=== PATIENT | female | born 1995 | race Caucasian/White ===

== ENCOUNTER 2019-10-25 21:14 | Emergency (ER) | payer SELFPAY ==
[2019-10-25] MEDS ORDERED: Albuterol 6.7 GM Inhaler INH ONE (21:42)
[2019-10-25] MEDS ORDERED: Codeine/Promethazine 10-6.25 MG/5 ML Syrup 5 ML UD Cup PO ONE (21:45)
--- NOTE | 2019-10-25 21:54 | EDM.PDOC ---
ED HPI GENERAL MEDICAL PROBLEM - General Chief Complaint: Respiratory Problem Stated Complaint: COUGH/FEVER/MUCOUS Time Seen by Provider: 10/25/19 21:16 Source of Information: Reports: Patient History Limitations: Reports: No Limitations - History of Present Illness INITIAL COMMENTS - FREE TEXT/NARRATIVE: Patient is a 24-year-old female who presents with complaints of cough, fever, shortness of breath, and chest discomfort for the last 2 weeks. Patient states that this illness started as a sore throat about 2 weeks ago and gradually progressed into a dry cough. She developed a fever approximately 1 week ago. Cough has not been productive with "thick green blobs ". She has been using [id number] DayQuil and NyQuil. She has no chronic lung conditions. Patient was in [place] about 3 weeks ago, but has not had any known sick contacts. She did not receive a flu shot this year. 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, Musculoskeletal History: Reports: None Neurological History: Reports: None Psychiatric History: Reports: None Endocrine/Metabolic History: Reports: None Hematologic History: Reports: None Immunologic History: Reports: None Oncologic (Cancer) History: Reports: None Dermatologic History: Reports: None - Infectious Disease History Infectious Disease History: Reports: None - Past Surgical History HEENT Surgical History: Reports: Other (See Below) Other HEENT Surgeries/Procedures: Ear Surgery in 2018 Female Surgical History: Reports: Section, Lithotripsy/ESWL Social & Family History - Family History Family Medical History: Noncontributory - Tobacco Use Smoking Status *Q: Current Every Day Smoker Years of Tobacco use: 10 Packs/Tins Daily: 0.2 - Caffeine Use Caffeine Use: Reports: Soda - Recreational Drug Use Recreational Drug Use: No ED ROS GENERAL - Review of Systems Review Of Systems: See Below Constitutional: Reports: Fever, Chills HEENT: Reports: No Symptoms. Denies: Ear Pain Respiratory: Reports: Shortness of Breath, Pleuritic Chest Pain, Cough, Sputum Cardiovascular: Reports: No Symptoms. Denies: Lightheadedness, Palpitations Endocrine: Reports: No Symptoms GI/Abdominal: Reports: No Symptoms. Denies: Abdominal Pain, Diarrhea, Nausea, Vomiting : Reports: No Symptoms Musculoskeletal: Reports: No Symptoms Skin: Reports: No Symptoms Neurological: Reports: No Symptoms Psychiatric: Reports: No Symptoms Hematologic/Lymphatic: Reports: No Symptoms Immunologic: Reports: No Symptoms ED EXAM, GENERAL - Physical Exam Exam: See Below Exam Limited By: No Limitations General Appearance: Alert, WD/WN, No Apparent Distress Respiratory/Chest: No Respiratory Distress, Lungs Clear, Normal Breath Sounds, No Accessory Muscle Use, Chest Non-Tender, Other (Harsh cough). No: Crackles, Rales, Rhonchi, Wheezing, Stridor, Accessory Muscle Use Cardiovascular: Normal Peripheral Pulses, Regular Rate, Rhythm, No Edema, No Gallop, No JVD, No Murmur, No Rub Neurological: Alert, Oriented, CN II-XII Intact, Normal Cognition, Normal Gait, Normal Reflexes, No Motor/Sensory Deficits Psychiatric: Normal Affect, Normal Mood Skin Exam: Warm, Dry, Intact, Normal Color, No Rash Course - Vital Signs Last Recorded V/S: Last Vital Signs Temp 100.2 F 10/25/19 21:21 Pulse 121 H 10/25/19 21:21 Resp 16 10/25/19 21:21 BP 154/89 H 10/25/19 21:21 Pulse Ox 100 10/25/19 22:13 - Orders/Labs/Meds Orders: Active Orders 24 hr Category Date Time Status RT Post Treatment Assessment [RC] Click to Edit Care 10/25/19 21:42 Active RT Pre-Treatment Assessment [RC] Click to Edit Care 10/25/19 21:42 Active CORONAVIRUS COVID-19 PCR PHL [MREF] Stat Lab 10/25/19 22:05 Received Isolation [COMM] Routine Oth 10/25/19 21:47 Ordered Meds: Medications Discontinued Medications Generic Name Dose Route Start Last Admin Trade Name Freq PRN Reason Stop Dose Admin Albuterol 0 gm 10/25/19 21:42 10/25/19 22:10 Proventil Hfa INH 10/25/19 21:43 2 puff ONETIME ONE Administration Promethazine HCl/Codeine 5 ml 10/25/19 21:45 10/25/19 22:02 Phenergan With Codeine PO 10/25/19 21:46 5 ml ONETIME ONE Administration - Re-Assessments/Exams Free Text/Narrative Re-Assessment/Exam: 10/25/19 22:49 Chest x-ray was negative for any infiltrates. Patient's cough is much improved after the albuterol and cough syrup. Oxygen saturations remain 100% on room and she is in no respiratory distress. We will discharge her home at this time with instructions to continue to self isolate. I will send a prescription for Phenergan with codeine to [facility]. Discharge instructions as documented. Departure - Departure Time of Disposition: 22:50 Disposition: Home, Self-Care 01 Condition: Fair Clinical Impression: Viral respiratory illness - Discharge Information *PRESCRIPTION DRUG MONITORING PROGRAM REVIEWED*: No *COPY OF PRESCRIPTION DRUG MONITORING REPORT IN PATIENT MIKE: No Prescriptions: Codeine/Promethazine [Phenergan with Codeine] 5 ml PO Q4HR PRN #100 ml PRN Reason: Cough Instructions: Viral Illness, Adult Referrals: PCP,None [Primary Care Provider] - Forms: ED Department Discharge Additional Instructions: You were seen in the emergency department today for fever, cough, and shortness of breath for the last 2 weeks. A chest x-ray was done. There was no evidence of pneumonia. Influenza screen was done and was found to be negative. Covid19 testing was also collected, however the results of this test would not be available for 24 to 36 hours. You will be notified when these are available. You have been sent home with an albuterol inhaler. Use this 2 puffs every 4 hours as needed for cough and shortness of breath. A prescription for Phenergan with codeine cough syrup is also been sent to [facility]. Use this as prescribed. This may be sedating so do not drive for at least 12 hours after taking the medication. Recommend that you continue to self quarantine until symptoms have been fully resolved for at least 3 days. If you should experience any worsening symptoms, please return to the emergency department. Sepsis Event Note - Evaluation Sepsis Screening Result: Possible Sepsis Risk - Focused Exam Date Exam was Performed: 10/26/19 Time Exam was Performed: 11:16 - My Orders Last 24 Hours: My Active Orders 10/25/19 21:42 RT Post Treatment Assessment [RC] Click to Edit RT Pre-Treatment Assessment [RC] Click to Edit 10/25/19 21:47 Isolation [COMM] Routine 10/25/19 22:05 CORONAVIRUS COVID-19 PCR PHL [MREF] Stat - Assessment/Plan Last 24 Hours: My Active Orders 10/25/19 21:42 RT Post Treatment Assessment [RC] Click to Edit RT Pre-Treatment Assessment [RC] Click to Edit 10/25/19 21:47 Isolation [COMM] Routine 10/25/19 22:05 CORONAVIRUS COVID-19 PCR PHL [MREF] Stat
--- NOTE | 2019-10-26 06:49 | CR ---
Chest: Portable view of the chest was obtained. Comparison: No prior chest imaging. Heart size and mediastinum are normal. Lungs show no acute parenchymal change. Bony structures are grossly intact. Impression: 1. Nothing acute is appreciated on portable chest x-ray. Diagnostic code #1 This report was dictated in MDT
== END 2019-10-25 23:10 | disposition home or self-care (01) ==
LOC: JD.ED 21:14
DX: J06.9 Acute upper respiratory infection, unspecified (principal); F17.210 Nicotine dependence, cigarettes, uncomplicated; Z88.5 Allergy status to narcotic agent
CPT/HCPCS: 71045; 87804; 94640; 99284; A9270; U0001; 99283

== ENCOUNTER 2019-11-07 19:36 | Emergency (ER) | payer SELFPAY ==
[2019-11-07] MEDS ORDERED: Ondansetron 4 MG/2 ML SDV IVPUSH ONE (20:18)
[2019-11-07] MEDS ORDERED: HYDROmorphone 1 MG/ML Syringe IVPUSH STA (20:18)
--- NOTE | 2019-11-07 20:26 | EDM.PDOC ---
<Sam Rangel Len - Last Filed: 11/08/19 07:09> ED HPI GENERAL MEDICAL PROBLEM - General Chief Complaint: Abdominal Pain Stated Complaint: SIDE/ABDOMINAL PAIN Time Seen by Provider: 11/07/19 19:57 Source of Information: Reports: Patient History Limitations: Reports: No Limitations - History of Present Illness INITIAL COMMENTS - FREE TEXT/NARRATIVE: Ms. Herring is a most pleasant 24-year-old woman with a past medical history significant for kidney stones and endometriosis, who now presents to the ED stating that she has been experiencing nausea and vomiting, along with a headache, feeling shaky, weak, and lightheaded for the past 4 days, since 11/03/2019. She then developed right upper quadrant abdominal pain, sharp in character, that radiated to her right flank, around 12:30 yesterday afternoon. Over time, the pain started radiating down as a shooting pain to her right lower quadrant. Her pain is worse if she is supine, otherwise, she has not identified any modifiers. No associated fever, chills, dysuria, urinary frequency, or gross hematuria. No recent sore throat, ear pain, nasal or sinus congestion, cough, dyspnea, chest pain, palpitations, constipation, recent weight gain or weight loss, recent bloody bowel movements or black bowel movements, recent joint aches, or rashes. The patient states that her pain is similar to prior kidney stones, except that her kidney stone pain was limited to her flank, and did not radiate to her abdomen. The patient's LMP was 10/11/2019. She states that there is no chance that she could be . She last ate around 14:00 this afternoon. Here in the ED, the patient is found to be hemodynamically stable, afebrile, saturating 100% on room air. The patient does not have a PCP. She did not receive an influenza vaccine this season, but agreed to receive one here today. 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) - Past Surgical History HEENT Surgical History: Reports: Other (See Below) (Left TM reconstruction Jul 2019) Female Surgical History: Reports: Section (x 1), Lithotripsy/ESWL ( x 2), Other (See Below) (Exploratory laparotomy for ovarian cyst, discovering endometriosis) Social & Family History - Family History Family Medical History: Noncontributory - Tobacco Use Smoking Status *Q: Current Every Day Smoker Years of Tobacco use: 10 Packs/Tins Daily: 0.3 Packs/Tins Daily Comment: Down from 1 ppd - Caffeine Use Caffeine Use: Reports: Soda - Alcohol Use Alcohol Use History: Yes Date/Time of Last Drink Comment: Quit 2015 - Recreational Drug Use Recreational Drug Use: Yes Drug Use in Last 12 Months: No Recreational Drug Type: Reports: Marijuana/Hashish (last smoked 17 yrs old) - Living Situation & Occupation Living situation: Reports: , with Family (Son), Other (Friend) Occupation: Unemployed ED ROS GENERAL - Review of Systems Review Of Systems: Comprehensive ROS is negative, except as noted in HPI. ED EXAM, GI/ABD - Physical Exam Exam: See Below Exam Limited By: No Limitations General Appearance: Alert, WD/WN, No Apparent Distress Eyes: Bilateral: Normal Appearance, EOMI Ears: Normal External Exam, Hearing Grossly Normal Nose: Normal Inspection Throat/Mouth: Normal Inspection, Normal Lips, Normal Voice, No Airway Compromise Head: Atraumatic, Normocephalic Neck: Normal Inspection, Full Range of Motion Respiratory/Chest: No Respiratory Distress, Lungs Clear, Normal Breath Sounds, No Accessory Muscle Use Cardiovascular: Normal Peripheral Pulses, Regular Rate, Rhythm, No Edema, No Gallop, No JVD, No Murmur, No Rub GI/Abdominal Exam: Normal Bowel Sounds, Soft, No Organomegaly, No Distention, No Abnormal Bruit, No Mass, Tender (Exquisite tenderness in the right lower quadrant, only. Nontender elsewhere. Rovsing sign present, particularly with palpation of the central abdomen. Obturator sign present. Psoas sign present. Heel drop sign present.) (Female) Exam: Deferred Rectal (Female) Exam: Deferred Back Exam: Normal Inspection, Full Range of Motion. No: CVA Tenderness (L), CVA Tenderness (R) Extremities: Normal Inspection, Normal Range of Motion, No Pedal Edema, Normal Capillary Refill Neurological: Alert, Oriented, Normal Cognition, No Motor/Sensory Deficits Psychiatric: Normal Affect Skin Exam: Warm, Dry, Intact, Normal Color, No Rash Course - Vital Signs Last Recorded V/S: Last Vital Signs Temp 98.2 F 11/07/19 19:52 Pulse 91 11/07/19 19:52 Resp 18 11/07/19 19:52 BP 114/77 11/07/19 19:52 Pulse Ox 100 11/07/19 19:52 Orthostatic Blood Pressure [ 113/82 Standing] Orthostatic Blood Pressure [ 110/78 Sitting] Orthostatic Blood Pressure [ 111/61 Supine] - Orders/Labs/Meds Orders: Active Orders 24 hr Category Date Time Status Influenza Vaccine Charge [RC] .DISCHARGE Care 11/07/19 20:19 Active Orthostatic Vital Signs [RC] STAT Care 11/07/19 20:21 Active Labs: Laboratory Tests 11/07/19 11/07/19 11/07/19 Range/Units 20:32 20:39 20:39 WBC 8.35 (3.98-10.04) K/mm3 RBC 4.53 (3.98-5.22) M/mm3 Hgb 13.7 (11.2-15.7) gm/dl Hct 42.2 (34.1-44.9) % MCV 93.2 (79.4-94.8) fl MCH 30.2 (25.6-32.2) pg MCHC 32.5 (32.2-35.5) g/dl RDW Std Deviation 44.4 (36.4-46.3) fL Plt Count 265 (182-369) K/mm3 MPV 10.6 (9.4-12.3) fl Neutrophils % (Manual) 64 H (40-60) % Band Neutrophils % 0 (0-10) % Lymphocytes % (Manual) 26 (20-40) % Atypical Lymphs % 0 % Monocytes % (Manual) 8 (2-10) % Eosinophils % (Manual) 2 (0.7-5.8) % Basophils % (Manual) 0 L (0.1-1.2) Platelet Estimate Adequate RBC Morph Comment Normal Sodium (136-145) mEq/L Potassium (3.5-5.1) mEq/L Chloride (98-107) mEq/L Carbon Dioxide (21-32) mEq/L Anion Gap (5-15) BUN (7-18) mg/dL Creatinine (0.55-1.02) mg/dL Est Cr Clr Drug Dosing mL/min Estimated GFR (MDRD) (>60) mL/min BUN/Creatinine Ratio (14-18) Glucose (74-106) mg/dL Calcium (8.5-10.1) mg/dL Total Bilirubin (0.2-1.0) mg/dL AST (15-37) U/L ALT (14-59) U/L Alkaline Phosphatase (46-116) U/L Total Protein (6.4-8.2) g/dl Albumin (3.4-5.0) g/dl Globulin gm/dL Albumin/Globulin Ratio (1-2) Urine Color Yellow (Yellow) Urine Appearance Clear (Clear) Urine pH 6.0 (5.0-8.0) Ur Specific [place] > or = 1.030 (1.005-1.030) Urine Protein Negative (Negative) Urine Glucose (UA) Negative (Negative) Urine Ketones Negative (Negative) Urine Occult Blood Negative (Negative) Urine Nitrite Negative (Negative) Urine Bilirubin Negative (Negative) Urine Urobilinogen 0.2 (0.2-1.0) Ur Leukocyte Esterase Negative (Negative) Urine RBC 0-5 (0-5) /hpf Urine WBC 0-5 (0-5) /hpf Ur Squamous Epith Cells 0-5 (0-5) /hpf Urine Bacteria Few (FEW) /hpf Urine Mucus Moderate H (FEW) /hpf Urine HCG, Qual Negative (NEGATIVE) 11/07/19 Range/Units 21:03 WBC (3.98-10.04) K/mm3 RBC (3.98-5.22) M/mm3 Hgb (11.2-15.7) gm/dl Hct (34.1-44.9) % MCV (79.4-94.8) fl MCH (25.6-32.2) pg MCHC (32.2-35.5) g/dl RDW Std Deviation (36.4-46.3) fL Plt Count (182-369) K/mm3 MPV (9.4-12.3) fl Neutrophils % (Manual) (40-60) % Band Neutrophils % (0-10) % Lymphocytes % (Manual) (20-40) % Atypical Lymphs % % Monocytes % (Manual) (2-10) % Eosinophils % (Manual) (0.7-5.8) % Basophils % (Manual) (0.1-1.2) Platelet Estimate RBC Morph Comment Sodium 142 (136-145) mEq/L Potassium 3.2 L (3.5-5.1) mEq/L Chloride 105 (98-107) mEq/L Carbon Dioxide 26 (21-32) mEq/L Anion Gap 14.2 (5-15) BUN 13 (7-18) mg/dL Creatinine 0.7 (0.55-1.02) mg/dL Est Cr Clr Drug Dosing 97.17 mL/min Estimated GFR (MDRD) > 60 (>60) mL/min BUN/Creatinine Ratio 18.6 H (14-18) Glucose 91 (74-106) mg/dL Calcium 9.1 (8.5-10.1) mg/dL Total Bilirubin 0.4 (0.2-1.0) mg/dL AST 13 L (15-37) U/L ALT 35 (14-59) U/L Alkaline Phosphatase 75 (46-116) U/L Total Protein 7.7 (6.4-8.2) g/dl Albumin 4.3 (3.4-5.0) g/dl Globulin 3.4 gm/dL Albumin/Globulin Ratio 1.3 (1-2) Urine Color (Yellow) Urine Appearance (Clear) Urine pH (5.0-8.0) Ur Specific [place] (1.005-1.030) Urine Protein (Negative) Urine Glucose (UA) (Negative) Urine Ketones (Negative) Urine Occult Blood (Negative) Urine Nitrite (Negative) Urine Bilirubin (Negative) Urine Urobilinogen (0.2-1.0) Ur Leukocyte Esterase (Negative) Urine RBC (0-5) /hpf Urine WBC (0-5) /hpf Ur Squamous Epith Cells (0-5) /hpf Urine Bacteria (FEW) /hpf Urine Mucus (FEW) /hpf Urine HCG, Qual (NEGATIVE) Meds: Medications Discontinued Medications Generic Name Dose Route Start Last Admin Trade Name Freq PRN Reason Stop Dose Admin Hydromorphone HCl 0.5 mg 11/07/19 20:18 11/07/19 20:41 Dilaudid IVPUSH 11/07/19 20:19 0.5 mg ONETIME STA Administration Hydromorphone HCl 0.5 mg 11/07/19 22:46 11/07/19 23:01 Dilaudid IVPUSH 11/07/19 22:47 0.5 mg ONETIME ONE Administration Hydromorphone HCl 0.5 mg 11/08/19 01:08 11/08/19 01:57 Dilaudid IVPUSH 11/08/19 01:09 0.5 mg ONETIME ONE Administration Hydromorphone HCl 0.5 mg 11/08/19 04:33 11/08/19 04:44 Dilaudid IVPUSH 11/08/19 04:34 0.5 mg ONETIME ONE Administration Hydromorphone HCl 0.5 mg 11/08/19 08:28 11/08/19 08:40 Dilaudid IVPUSH 11/08/19 08:29 0.5 mg ONETIME ONE Administration Sodium Chloride 1,000 mls @ 150 mls/hr 11/07/19 20:30 11/07/19 20:42 Normal Saline IV 150 mls/hr ASDIRECTED [place] Administration Sodium Chloride 1,000 mls @ 999 mls/hr 11/08/19 08:30 11/08/19 08:35 Normal Saline IV 999 mls/hr ONETIME [place] Administration Influenza Virus Vaccine 1 each 11/07/19 20:19 Pharmacy To Dose - Influenza Vaccine IM 11/07/19 20:20 ONETIME ONE Influenza Virus Vaccine 60 mcg 11/07/19 20:30 11/07/19 20:56 Fluzone Quad Syringe IM 11/07/19 20:31 60 mcg .ONCE ONE Administration Iopamidol 100 ml 11/07/19 21:50 11/07/19 22:05 Isovue-300 (61%) IVPUSH 11/07/19 21:51 100 ml ONETIME ONE Administration Levofloxacin 750 mg 11/08/19 01:02 11/08/19 01:57 Levaquin PO 11/08/19 01:03 750 mg ONETIME STA Administration Lorazepam 0.5 mg 11/08/19 08:28 11/08/19 08:36 Ativan IVPUSH 11/08/19 08:29 0.5 mg ONETIME ONE Administration Metronidazole 500 mg 11/08/19 01:03 11/08/19 01:57 Flagyl PO 11/08/19 01:04 500 mg ONETIME STA Administration Ondansetron HCl 4 mg 11/07/19 20:18 11/07/19 20:42 Zofran IVPUSH 11/07/19 20:19 4 mg ONETIME ONE Administration Ondansetron HCl 4 mg 11/08/19 02:02 11/08/19 02:09 Zofran IVPUSH 11/08/19 02:03 4 mg ONETIME ONE Administration Potassium Chloride 40 meq 11/08/19 01:04 11/08/19 01:57 Klor-Con M20 PO 11/08/19 01:05 40 meq ONETIME ONE Administration - Re-Assessments/Exams Free Text/Narrative Re-Assessment/Exam: 11/07/19 20:21 Initially, I was suspecting that the patient was suffering from another kidney stone, however, her physical exam strongly suggests appendicitis. I have therefore ordered a work-up that includes blood work, a urinalysis, a urine test, and a CT scan of her abdomen and pelvis with oral and IV contrast. I have also ordered orthostatics, since she stated that she has been feeling lightheaded for the past 4 days. In the meantime, the patient will receive IV Dilaudid, IV Zofran, and IV fluid. 11/07/19 21:38 The patient is not orthostatic. 11/07/19 22:36 The patient's CBC is unremarkable. Her CMP is remarkable for a potassium depressed at 3.2, with the remainder of her CMP being unremarkable. Her urinalysis is unremarkable. Her urine test is negative. Before ordering oral potassium replacement, I want to be sure that the patient does not have an operable condition. 11/07/19 22:39 CT of the abdomen and pelvis with oral and IV contrast as read by Angle as "No acute findings." Based on the above, I will order a transvaginal ultrasound to evaluate for an ovarian cyst. If no cyst is found, I will need to call the Surgeon in to evaluate the patient personally. 11/07/19 22:47 The above plan was discussed with the patient. She is agreeable. I have ordered some additional Dilaudid. 11/08/19 00:55 Transvaginal ultrasound of the pelvis is read by [facility] as: 1. Possible intramural uterine fibroid, that measures 2.9 x 1.9 x 2.1 cm. 2. No evidence of left ovarian torsion. Right ovary not identified. Based on the above, I will discuss the case with the Surgeon chemistry quality control analyst. 11/08/19 01:[address] Alvarado at 00:57. He does not feel that the patient's presentation is consistent with appendicitis. He recommended that we give the patient oral Levaquin and oral Flagyl, and keep her here in the ED until the morning, at which time he can evaluate her personally. Since the patient is not going to the operating room, I have also ordered oral potassium chloride. We are unable to place the patient into observation, as no beds are available. 11/08/19 01:08 The above plan was discussed with the patient. She is agreeable. 11/08/19 07:[address] Jamie Ruiz. I will turn the patient over to him at this time to disposition based on Dr. Alvarado's evaluation. Departure - Departure Disposition: Home, Self-Care 01 Clinical Impression: Vomiting, Diarrhea, Abdominal pain - Discharge Information Prescriptions: Ondansetron [Zofran ODT] 4 mg PO Q8HR PRN #7 tab.dis PRN Reason: Nausea/Vomiting Instructions: Diarrhea, Adult, Abdominal Pain, Adult, Vomiting, Adult, [place] Diet Referrals: PCP,None [Primary Care Provider] - Forms: ED Department Discharge Additional Instructions: clear liquids only until this evening. Than very careful bland diet as tolerated. Avoid milk and dairy products for at least 3 days. Zofran if needed for any further nausea or vomiting. Prescription has been sent electronically to [facility]. Probiotic twice daily for 1 week. Follow up clinic if not better by tomorrow. Return to ED if symptoms worsening in any way as discussed. Sepsis Event Note - Evaluation Sepsis Screening Result: No Definite Risk - Focused Exam Date Exam was Performed: 11/08/19 Time Exam was Performed: 07:09 <Robi Ruiz - Last Filed: 11/08/19 17:30> Course - Re-Assessments/Exams Free Text/Narrative Re-Assessment/Exam: 11/08/19 08:30 Have assumed care from Dr Rangel at change of shift. I agree with his hx and exam as documented. Dr Alvarado General Surgeon has come over and evaluated patient. He agrees that she does not have a surgical abdomen. She has had vomiting and diarrhea for 4 days. Her labs are nl, Her CT did not show any acute findings. She is very anxious, upset that she is not getting better. She now has Reich after being up all night here in the ED and worried about continued abd pain and cramping. Have ordered dilaudid 0.5 mg IV, ativan 0.5 mg IV, another liter of IV fluid as her first liter was about 10 or more hrs ago. My plan is to let her than go home on clear liquids with prescription for zofran PRN, probiotic, strong return precautions. 11/08/19 17:29. resting much more comfortably after the above further dose of dilaudid, ativan and 1 further liter NS. Discharge instr. as documented. Departure - Departure Time of Disposition: 09:45 Condition: Fair Sepsis Event Note - Focused Exam Date Exam was Performed: 11/08/19 Time Exam was Performed: 17:29
[2019-11-07] MEDS ORDERED: FLU Vacc QS2019-20(6MOS+)/PF 60 MCG/0.5 ML SYRINGE IM ONE (20:30)
[2019-11-07] MEDS ORDERED: Sodium Chloride 0.9% 1,000 ML IV SCH (20:30)
[2019-11-07] MEDS ORDERED: Iopamidol 612 MG/ML 100 ML Bottle IVPUSH ONE (21:50)
[2019-11-07] MEDS ORDERED: HYDROmorphone 0.5 MG/0.5 ML Syringe IVPUSH ONE (22:46)
[2019-11-08] MEDS ORDERED: Levofloxacin 750 MG Tab PO STA (01:02)
[2019-11-08] MEDS ORDERED: metroNIDAZOLE 500 MG Tab PO STA (01:03)
[2019-11-08] MEDS ORDERED: Potassium Chloride 20 MEQ Tab.ER PO ONE (01:04)
[2019-11-08] MEDS ORDERED: HYDROmorphone 0.5 MG/0.5 ML Syringe IVPUSH ONE ×3 (01:08→08:28)
[2019-11-08] MEDS ORDERED: Ondansetron 4 MG/2 ML SDV IVPUSH ONE (02:02)
[2019-11-08] MEDS ORDERED: LORazepam 2 MG/ML SDV IVPUSH ONE (08:28)
[2019-11-08] MEDS ORDERED: Sodium Chloride 0.9% 1,000 ML IV SCH (08:30)
--- NOTE | 2019-11-08 08:31 | CT ---
CT abdomen and pelvis Technique: Multiple axial sections were obtained from above the dome of the diaphragm inferiorly through the pubic symphysis. Intravenous and oral contrast was utilized. Delayed images were also obtained through the bladder. Comparison: No prior abdominal imaging is available. Findings: Visualized lung bases show nothing acute. Minimal pleural-based nodule is seen within the left base measuring 2 mm which is felt to be incidental given the patient's age. Liver contains no focal abnormality. Spleen shows no focal abnormality. Adrenal glands show no nodule. Pancreas is within normal limits. Gallbladder contains no calcified gallstones. Kidneys show symmetric contrast enhancement without hydronephrosis or mass. Aorta shows no aneurysm. No retroperitoneal adenopathy or mesenteric abnormalities are seen. No pelvic mass or adenopathy is noted. Appendix is felt to be visualized and is normal in size. No free fluid or inflammatory change is appreciated. Bone window settings were reviewed which appear within normal limits for the patient's age. Delayed images shows contrast within the bladder. Impression: 1. Nothing acute is seen on CT study of the abdomen and pelvis. 2. Appendix appears normal in size. Diagnostic code #1 This report was dictated in MDT I agree with preliminary report from [facility], finalized on 11/07/19, 11:18 PM Central Daylight Time
--- NOTE | 2019-11-08 08:31 | US ---
Pelvic ultrasound: Multiple real-time images were obtained trans-vaginally and transabdominally. Comparison: Prior CT abdomen and pelvis exam performed earlier on the same day (10 PM). Anterior uterine fibroid is suggested measuring 2.1 x 2.9 x 1.9 cm. Endometrial thickness is normal at 6.1 mm. No free fluid is seen. Right ovary not visualized, right adnexa appears within normal limits. Left ovary appears within normal limits. Measurements: Uterus: Length 6.7 cm, AP height 3.4 cm, transverse width 4.6 cm Left ovary: 2.7 x 1.5 x 2.3 cm Impression: 1. Anterior uterine fibroid is suggested with measurements as noted above. 2. Right ovary not visualized, right adnexa appears within normal limits. 3. Other portions of the pelvic ultrasound exam are unremarkable. Diagnostic code #2 This report was dictated in MDT I agree with preliminary report from [facility], finalized on 11/08/19, 1:53 AM Central Daylight Time
--- NOTE | 2019-11-08 10:29 | PCM.CONS ---
H&P History of Present Illness - General Date of Service: 11/08/19 Admit Problem/Dx: abdominal pain Source of Information: Patient History Limitations: Reports: No Limitations - History of Present Illness Duration of Symptoms: Reports: Day(s): Location: Reports: Abdomen Quality: Reports: Ache, Pressure Severity: Severe Worsens with: Reports: Eating Associated Symptoms: Reports: Headaches, Loss of Appetite, Malaise, Nausea/ Vomiting, Other (diarrhea) Other HPI/Comments: Ms. Herring is a 24 yo woman with history of right ovarian cystectomy and endometriosis who presents with abdominal pain. Her story begins about 5 days ago, at which time she started to feel generally ill with nausea, malaise and watery diarrhea. She has been vomiting as well. She denies having pain at the onset of these symptoms, but two days ago she developed severe epigastric pain that has since radiated elsewhere. At presentation, she was reported to have McBurney point tenderness. In the emergency room, her lab work is normal and she has a CT scan which shows no abnormality. An endovaginal ultrasound failed to identify the right ovary. The patient's last menstrual period was almost exactly one month ago, and she reports a history of severe abdominal pain associated with her menstrual cycle. 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: Reports: 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 (laparotomy-proven) Musculoskeletal History: Reports: None Neurological History: Reports: None Psychiatric History: Reports: None Endocrine/Metabolic History: Reports: None Hematologic History: Reports: None Immunologic History: Reports: None Oncologic (Cancer) History: Reports: None Dermatologic History: Reports: None - Infectious Disease History Infectious Disease History: Reports: None - Past Surgical History HEENT Surgical History: Reports: Other (See Below) (Left TM reconstruction Jul 2019) Female Surgical History: Reports: Section (x 1), Lithotripsy/ESWL ( x 2), Other (See Below) (Exploratory laparotomy for ovarian cyst, discovering endometriosis) Social & Family History - Family History Family Medical History: Noncontributory - Tobacco Use Smoking Status *Q: Current Every Day Smoker Years of Tobacco use: 10 Packs/Tins Daily: 0.3 - Caffeine Use Caffeine Use: Reports: Soda - Recreational Drug Use Recreational Drug Use: Yes Drug Use in Last 12 Months: No Recreational Drug Type: Reports: Marijuana/Hashish (last smoked 17 yrs old) - Living Situation & Occupation Living situation: Reports: , with Family (Son), Other (Friend) Occupation: Unemployed H&P Review of Systems - Review of Systems: Review Of Systems: See Below General: Reports: Malaise, Weakness, Fatigue, Decreased Appetite HEENT: Reports: Headaches Pulmonary: Reports: No Symptoms Cardiovascular: Reports: No Symptoms Gastrointestinal: Reports: Abdominal Pain, Anorexia, Diarrhea, Decreased Appetite, Nausea, Vomiting Genitourinary: Reports: Dysmenorrhea Skin: Reports: No Symptoms Psychiatric: Reports: Anxiety Neurological: Reports: No Symptoms Hematologic/Lymphatic: Reports: No Symptoms Immunologic: Reports: No Symptoms Exam - Exam Exam: See Below - Vital Signs Vital Signs: Last Vital Signs Temp 36.8 C 11/07/19 19:52 Pulse 91 11/07/19 19:52 Resp 18 11/07/19 19:52 BP 114/77 11/07/19 19:52 Pulse Ox 100 11/07/19 19:52 Orthostatic Blood Pressure [ 113/82 Standing] Orthostatic Blood Pressure [ 110/78 Sitting] Orthostatic Blood Pressure [ 111/61 Supine] Weight: 51.256 kg - Exam General: Alert, Mild Distress HEENT: Conjunctiva Clear Neck: Supple Lungs: Clear to Auscultation, Normal Respiratory Effort Cardiovascular: Regular Rate GI/Abdominal Exam: Soft, No Distention, No Mass, Other (focal right upper quadrant tenderness) (Female) Exam: Deferred Rectal (Female) Exam: Deferred Extremities: Normal Inspection, Normal Range of Motion Skin: Warm, Dry, Intact Neuro Extensive - Mental Status: Alert, Oriented x3 Psychiatric: Normal Affect, Anxious, Depressed - Patient Data Lab Results Last 24 hrs: Laboratory Results - last 24 hr 11/07/19 11/07/19 11/07/19 Range/Units 20:32 20:39 20:39 WBC 8.35 (3.98-10.04) K/mm3 RBC 4.53 (3.98-5.22) M/mm3 Hgb 13.7 (11.2-15.7) gm/dl Hct 42.2 (34.1-44.9) % MCV 93.2 (79.4-94.8) fl MCH 30.2 (25.6-32.2) pg MCHC 32.5 (32.2-35.5) g/dl RDW Std Deviation 44.4 (36.4-46.3) fL Plt Count 265 (182-369) K/mm3 MPV 10.6 (9.4-12.3) fl Neutrophils % (Manual) 64 H (40-60) % Band Neutrophils % 0 (0-10) % Lymphocytes % (Manual) 26 (20-40) % Atypical Lymphs % 0 % Monocytes % (Manual) 8 (2-10) % Eosinophils % (Manual) 2 (0.7-5.8) % Basophils % (Manual) 0 L (0.1-1.2) Platelet Estimate Adequate RBC Morph Comment Normal Sodium (136-145) mEq/L Potassium (3.5-5.1) mEq/L Chloride (98-107) mEq/L Carbon Dioxide (21-32) mEq/L Anion Gap (5-15) BUN (7-18) mg/dL Creatinine (0.55-1.02) mg/dL Est Cr Clr Drug Dosing mL/min Estimated GFR (MDRD) (>60) mL/min BUN/Creatinine Ratio (14-18) Glucose (74-106) mg/dL Calcium (8.5-10.1) mg/dL Total Bilirubin (0.2-1.0) mg/dL AST (15-37) U/L ALT (14-59) U/L Alkaline Phosphatase (46-116) U/L Total Protein (6.4-8.2) g/dl Albumin (3.4-5.0) g/dl Globulin gm/dL Albumin/Globulin Ratio (1-2) Urine Color Yellow (Yellow) Urine Appearance Clear (Clear) Urine pH 6.0 (5.0-8.0) Ur Specific [place] > or = 1.030 (1.005-1.030) Urine Protein Negative (Negative) Urine Glucose (UA) Negative (Negative) Urine Ketones Negative (Negative) Urine Occult Blood Negative (Negative) Urine Nitrite Negative (Negative) Urine Bilirubin Negative (Negative) Urine Urobilinogen 0.2 (0.2-1.0) Ur Leukocyte Esterase Negative (Negative) Urine RBC 0-5 (0-5) /hpf Urine WBC 0-5 (0-5) /hpf Ur Squamous Epith Cells 0-5 (0-5) /hpf Urine Bacteria Few (FEW) /hpf Urine Mucus Moderate H (FEW) /hpf Urine HCG, Qual Negative (NEGATIVE) 11/07/19 Range/Units 21:03 WBC (3.98-10.04) K/mm3 RBC (3.98-5.22) M/mm3 Hgb (11.2-15.7) gm/dl Hct (34.1-44.9) % MCV (79.4-94.8) fl MCH (25.6-32.2) pg MCHC (32.2-35.5) g/dl RDW Std Deviation (36.4-46.3) fL Plt Count (182-369) K/mm3 MPV (9.4-12.3) fl Neutrophils % (Manual) (40-60) % Band Neutrophils % (0-10) % Lymphocytes % (Manual) (20-40) % Atypical Lymphs % % Monocytes % (Manual) (2-10) % Eosinophils % (Manual) (0.7-5.8) % Basophils % (Manual) (0.1-1.2) Platelet Estimate RBC Morph Comment Sodium 142 (136-145) mEq/L Potassium 3.2 L (3.5-5.1) mEq/L Chloride 105 (98-107) mEq/L Carbon Dioxide 26 (21-32) mEq/L Anion Gap 14.2 (5-15) BUN 13 (7-18) mg/dL Creatinine 0.7 (0.55-1.02) mg/dL Est Cr Clr Drug Dosing 97.17 mL/min Estimated GFR (MDRD) > 60 (>60) mL/min BUN/Creatinine Ratio 18.6 H (14-18) Glucose 91 (74-106) mg/dL Calcium 9.1 (8.5-10.1) mg/dL Total Bilirubin 0.4 (0.2-1.0) mg/dL AST 13 L (15-37) U/L ALT 35 (14-59) U/L Alkaline Phosphatase 75 (46-116) U/L Total Protein 7.7 (6.4-8.2) g/dl Albumin 4.3 (3.4-5.0) g/dl Globulin 3.4 gm/dL Albumin/Globulin Ratio 1.3 (1-2) Urine Color (Yellow) Urine Appearance (Clear) Urine pH (5.0-8.0) Ur Specific [place] (1.005-1.030) Urine Protein (Negative) Urine Glucose (UA) (Negative) Urine Ketones (Negative) Urine Occult Blood (Negative) Urine Nitrite (Negative) Urine Bilirubin (Negative) Urine Urobilinogen (0.2-1.0) Ur Leukocyte Esterase (Negative) Urine RBC (0-5) /hpf Urine WBC (0-5) /hpf Ur Squamous Epith Cells (0-5) /hpf Urine Bacteria (FEW) /hpf Urine Mucus (FEW) /hpf Urine HCG, Qual (NEGATIVE) Result Diagrams: 11/07/19 20:32 11/07/19 21:03 Sepsis Event Note - Evaluation Sepsis Screening Result: No Definite Risk *Q Meaningful Use (ADM) - VTE Risk Assess *Q Each Risk Factor Represents 1 Point: None Total Score 1 Point Risk Factors: 0 Consult PN Assessment/Plan Procedures: Procedures AIRWAY INHALATION TREATMENT (10/25/19) COMPLETE CBC W/AUTO DIFF WBC (04/05/19) COMPREHEN METABOLIC PANEL (04/05/19) CT ABD & PELV W/CONTRAST (04/05/19) EMERGENCY DEPT VISIT (10/25/19) HYDRATE IV INFUSION ADD-ON (04/05/19) INFLUENZA ASSAY W/OPTIC (10/25/19) ROUTINE VENIPUNCTURE (04/05/19) THER/PROPH/DIAG INJ IV PUSH (04/05/19) TX/PRO/DX INJ NEW DRUG ADDON (04/05/19) URINALYSIS AUTO W/SCOPE (04/05/19) URINE CULTURE/COLONY COUNT (04/05/19) URINE TEST (04/05/19) X-RAY EXAM CHEST 1 VIEW (10/25/19) Problem List Initiated/Reviewed/Updated: Yes My Orders Last 24 Hours: . Plan: History is more suggestive of an acute infectious process/gastroenteritis than anything. Her abdominal pain may be unrelated to this, and the timing seems to fit with prior pain associated with menses. The patient does have a history of endometriosis noted on laparoscopy for ovarian cystectomy a few years ago. Her exam is not consistent with appendicitis but is rather suggestive of possible gallbladder pathology. At this time, an ultrasound seems low yield given normal labs and CT scan, but if pain persists the ultrasound may prove useful
== END 2019-11-08 10:00 | disposition home or self-care (01) ==
LOC: JD.ED 19:36
DX: R10.31 Right lower quadrant pain (principal); R10.11 Right upper quadrant pain; R11.2 Nausea with vomiting, unspecified; R19.7 Diarrhea, unspecified; Z23 Encounter for immunization; F17.210 Nicotine dependence, cigarettes, uncomplicated; Z88.5 Allergy status to narcotic agent
CPT/HCPCS: 36415; 74177; 76830; 80053; 81001; 81025; 85007; 85027; 90471; 90686; 96361; 96374; 96375; 96376; 99284; A9270; J1170; J2060; J2405; J7030; Q9967; G0008

== ENCOUNTER 2020-01-30 00:56 | Emergency (ER) | payer MEDICAID ==
--- NOTE | 2020-01-30 01:44 | EDM.PDOC ---
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 Patient has had this pain getting worse over the last 3 weeks. The patient had an ultrasound done about a week and a half ago with Dr. Fermin and this showed a left ovary with a 3.3 cm cyst on it. The patient is having significant problems with ovarian cysts in the past. She had a right oophorectomy due to no ovarian cyst that was the size of a cantaloupe. The patient has noticed increasing pain over the last 8 to 10 hours with this. The patient is unable to get any sort of sleep or rest and is having difficulty finding a comfortable position. 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 Psychiatric History: Reports: PTSD - Past Surgical History HEENT Surgical History: Reports: Tonsillectomy Female Surgical History: Reports: Lithotripsy/ESWL Social & Family History - Family History Family Medical History: Noncontributory - Caffeine Use Caffeine Use: Reports: Coffee, Soda ED ROS GENERAL - Review of Systems Review Of Systems: See Below Constitutional: Reports: No Symptoms HEENT: Reports: No Symptoms Respiratory: Reports: No Symptoms Cardiovascular: Reports: No Symptoms Endocrine: Reports: No Symptoms GI/Abdominal: Reports: Abdominal Pain (This is left lower quadrant pain), Nausea. Denies: Constipation, Diarrhea, Vomiting : Reports: No Symptoms ED EXAM, GI/ABD - Physical Exam Exam: See Below Exam Limited By: No Limitations General Appearance: Alert, Mild Distress (From the pain) Head: Atraumatic, Normocephalic Neck: Normal Inspection, Supple, Non-Tender, Full Range of Motion Respiratory/Chest: No Respiratory Distress, Lungs Clear, Normal Breath Sounds Cardiovascular: Regular Rate, Rhythm, No Edema, No Murmur GI/Abdominal Exam: Normal Bowel Sounds, Soft, Tender (Left pelvis and lower quadrant significant discomfort). No: Guarding, Rigid, Rebound Back Exam: Normal Inspection. No: CVA Tenderness (L), CVA Tenderness (R) Extremities: Normal Inspection, No Pedal Edema Neurological: Alert, Oriented, Normal Cognition Course - Vital Signs Last Recorded V/S: Last Vital Signs Temp 36.8 C 01/30/20 01:30 Pulse 88 01/30/20 01:30 Resp 16 01/30/20 01:30 BP 112/72 01/30/20 01:30 Pulse Ox 100 01/30/20 01:30 - Orders/Labs/Meds Orders: Active Orders 24 hr Category Date Time Status Transvaginal Non OB [US] Stat Exams 01/30/20 02:37 Taken Lactated Ringers [Ringers, Lactated] 1,000 ml Med 01/30/20 02:00 Active IV ASDIRECTED Medication Orders Lactated Ringer's (Ringers, Lactated) 1,000 mls @ 125 mls/hr IV ASDIRECTED [place] Last Admin: 01/30/20 02:22 Dose: 125 mls/hr Documented by: [place] Labs: Laboratory Tests 01/30/20 01/30/20 01/30/20 Range/Units 02:15 02:15 02:30 WBC 9.74 (3.98-10.04) K/mm3 RBC 4.35 (3.98-5.22) M/mm3 Hgb 13.3 (11.2-15.7) gm/dl Hct 39.9 (34.1-44.9) % MCV 91.7 (79.4-94.8) fl MCH 30.6 (25.6-32.2) pg MCHC 33.3 (32.2-35.5) g/dl RDW Std Deviation 41.7 (36.4-46.3) fL Plt Count 242 (182-369) K/mm3 MPV 10.4 (9.4-12.3) fl Neut % (Auto) 52.1 (34.0-71.1) % Lymph % (Auto) 36.7 (19.3-51.7) % [place] % (Auto) 7.6 (4.7-12.5) % Eos % (Auto) 3.1 (0.7-5.8) Baso % (Auto) 0.2 (0.1-1.2) % Neut # (Auto) 5.08 (1.56-6.13) K/mm3 Lymph # (Auto) 3.57 (1.18-3.74) K/mm3 [place] # (Auto) 0.74 H (0.24-0.36) K/mm3 Eos # (Auto) 0.30 (0.04-0.36) K/mm3 Baso # (Auto) 0.02 (0.01-0.08) K/mm3 Sodium (136-145) mEq/L Potassium (3.5-5.1) mEq/L Chloride (98-107) mEq/L Carbon Dioxide (21-32) mEq/L Anion Gap (5-15) BUN (7-18) mg/dL Creatinine (0.55-1.02) mg/dL Est Cr Clr Drug Dosing mL/min Estimated GFR (MDRD) (>60) mL/min BUN/Creatinine Ratio (14-18) Glucose (74-106) mg/dL Calcium (8.5-10.1) mg/dL Total Bilirubin (0.2-1.0) mg/dL AST (15-37) U/L ALT (14-59) U/L Alkaline Phosphatase (46-116) U/L Total Protein (6.4-8.2) g/dl Albumin (3.4-5.0) g/dl Globulin gm/dL Albumin/Globulin Ratio (1-2) Urine Color Yellow (Yellow) Urine Appearance Clear (Clear) Urine pH 7.0 (5.0-8.0) Ur Specific [place] 1.025 (1.005-1.030) Urine Protein Negative (Negative) Urine Glucose (UA) Negative (Negative) Urine Ketones Negative (Negative) Urine Occult Blood Negative (Negative) Urine Nitrite Negative (Negative) Urine Bilirubin Negative (Negative) Urine Urobilinogen 0.2 (0.2-1.0) Ur Leukocyte Esterase Negative (Negative) Urine HCG, Qual Negative (NEGATIVE) 01/30/20 Range/Units 02:30 WBC (3.98-10.04) K/mm3 RBC (3.98-5.22) M/mm3 Hgb (11.2-15.7) gm/dl Hct (34.1-44.9) % MCV (79.4-94.8) fl MCH (25.6-32.2) pg MCHC (32.2-35.5) g/dl RDW Std Deviation (36.4-46.3) fL Plt Count (182-369) K/mm3 MPV (9.4-12.3) fl Neut % (Auto) (34.0-71.1) % Lymph % (Auto) (19.3-51.7) % [place] % (Auto) (4.7-12.5) % Eos % (Auto) (0.7-5.8) Baso % (Auto) (0.1-1.2) % Neut # (Auto) (1.56-6.13) K/mm3 Lymph # (Auto) (1.18-3.74) K/mm3 [place] # (Auto) (0.24-0.36) K/mm3 Eos # (Auto) (0.04-0.36) K/mm3 Baso # (Auto) (0.01-0.08) K/mm3 Sodium 138 (136-145) mEq/L Potassium 3.4 L (3.5-5.1) mEq/L Chloride 102 (98-107) mEq/L Carbon Dioxide 26 (21-32) mEq/L Anion Gap 13.4 (5-15) BUN 9 (7-18) mg/dL Creatinine 0.8 (0.55-1.02) mg/dL Est Cr Clr Drug Dosing 85.02 mL/min Estimated GFR (MDRD) > 60 (>60) mL/min BUN/Creatinine Ratio 11.3 L (14-18) Glucose 85 (74-106) mg/dL Calcium 8.7 (8.5-10.1) mg/dL Total Bilirubin 0.4 (0.2-1.0) mg/dL AST 12 L (15-37) U/L ALT 18 (14-59) U/L Alkaline Phosphatase 69 (46-116) U/L Total Protein 7.7 (6.4-8.2) g/dl Albumin 4.4 (3.4-5.0) g/dl Globulin 3.3 gm/dL Albumin/Globulin Ratio 1.3 (1-2) Urine Color (Yellow) Urine Appearance (Clear) Urine pH (5.0-8.0) Ur Specific [place] (1.005-1.030) Urine Protein (Negative) Urine Glucose (UA) (Negative) Urine Ketones (Negative) Urine Occult Blood (Negative) Urine Nitrite (Negative) Urine Bilirubin (Negative) Urine Urobilinogen (0.2-1.0) Ur Leukocyte Esterase (Negative) Urine HCG, Qual (NEGATIVE) Meds: Medications Generic Name Dose Route Start Last Admin Trade Name Freq PRN Reason Stop Dose Admin Lactated Ringer's 1,000 mls @ 125 mls/hr 01/30/20 02:00 01/30/20 02:22 Ringers, Lactated IV 125 mls/hr ASDIRECTED [place] Administration Discontinued Medications Generic Name Dose Route Start Last Admin Trade Name Freq PRN Reason Stop Dose Admin Fentanyl 50 mcg 01/30/20 03:19 01/30/20 03:27 Sublimaze IVPUSH 01/30/20 03:20 50 mcg ONETIME ONE Administration Hydromorphone HCl 0.5 mg 01/30/20 02:00 01/30/20 02:22 Dilaudid IVPUSH 01/30/20 02:01 0.5 mg ONETIME ONE Administration Ondansetron HCl 4 mg 01/30/20 02:00 01/30/20 02:22 Zofran IVPUSH 01/30/20 02:01 4 mg ONETIME ONE Administration - Re-Assessments/Exams Free Text/Narrative Re-Assessment/Exam: 01/30/20 03:56 Evaluation is unremarkable see as printed above hCG negative. Pelvic ultrasound was obtained which shows a hemorrhagic left ovarian cyst that measures 4.3 x 3.4 x 3.5 cm is most compatible with a hemorrhagic cyst, small amount of cul-de-sac fluid noted. Case was discussed with Dr. Adams on-call for gynecology. We will have the patient follow-up with Dr. Fermin later today. The patient received 1/2 mg of Dilaudid here in the emergency department and after the transvaginal ultrasound was done she had some discomfort and was given 50 mcg of fentanyl the patient is comfortable at this time we will discharge with a prescription for [place] 12/01/2024 #20 from the machine out in the waiting room. The patient verbalizes understanding to call Dr. Fermin's office today as soon as it opens. Departure - Departure Time of Disposition: 04:02 Disposition: Home, Self-Care 01 Clinical Impression: Complex cyst of left ovary - Discharge Information Referrals: Ophelia Mcwilliams MD [Primary Care Provider] - Forms: ED Department Discharge Additional Instructions: Return to the emergency room with any questions problems or worsening symptoms. Follow-up with Dr. Fermin later today call her office as soon as it opens. You were given a prescription for [place], this is a pain pill. Take 1 or 2 every 6 hours as needed for pain. Allow 12 hours after using this medication before driving or returning to work. If you have to use this medication on a regular basis take Colace 100 mg, this is an [id number] stool softener twice daily. Drink plenty of fluids. Sepsis Event Note (ED) - Evaluation Sepsis Screening Result: No Definite Risk - Focused Exam Vital Signs: Vital Signs Temp Pulse Resp BP Pulse Ox 01/30/20 01:30 36.8 C 88 16 112/72 100 - My Orders Last 24 Hours: My Active Orders 01/30/20 02:00 Lactated Ringers [Ringers, Lactated] 1,000 ml IV ASDIRECTED 01/30/20 02:37 Transvaginal Non OB [US] Stat - Assessment/Plan Last 24 Hours: My Active Orders 01/30/20 02:00 Lactated Ringers [Ringers, Lactated] 1,000 ml IV ASDIRECTED 01/30/20 02:37 Transvaginal Non OB [US] Stat
[2020-01-30] MEDS ORDERED: HYDROmorphone 0.5 MG/0.5 ML Syringe IVPUSH ONE (02:00)
[2020-01-30] MEDS ORDERED: Ondansetron 4 MG/2 ML SDV IVPUSH ONE (02:00)
[2020-01-30] MEDS ORDERED: Lactated Ringers 1,000 ML IV SCH (02:00)
[2020-01-30] MEDS ORDERED: fentaNYL 100 MCG/2 ML SDV IVPUSH ONE (03:19)
--- NOTE | 2020-01-30 09:02 | US ---
Pelvic ultrasound: Multiple real-time images were obtained transvaginally. Comparison: No prior study. Uterus is anteverted. No myometrial abnormality is seen. Endometrial thickness is 1.0 cm. Minimal free fluid is seen within the cul-de-sac believed to be physiologic. Right ovary not visualized with certainty. Complicated cyst is noted within the left ovary measuring 4.3 x 3.4 x 3.5 cm most likely representing hemorrhagic cyst. Measurements: Uterus: Length 7.8 cm, AP height 3.4 cm, transverse width 3.5 cm Left ovary: 5.1 x 4.0 x 4.7 cm Impression: 1. Hemorrhagic cyst within the left ovary measuring up to 4.3 cm. 2. Nonvisualized right ovary. 3. Other findings believed to be incidental and physiologic. Diagnostic code #3 This report was dictated in MDT I agree with preliminary report from adalberto, finalized on 01/30/20, 4:28 AM Central Daylight Time
== END 2020-01-30 04:25 | disposition home or self-care (01) ==
LOC: JD.ED 00:56 → SUPCPDRO 00:56 → MERGE 00:56 → JD.ED 04:25
DX: N83.202 Unspecified ovarian cyst, left side (principal); Z88.5 Allergy status to narcotic agent; Z79.899 Other long term (current) drug therapy
CPT/HCPCS: 36415; 76830; 80053; 81003; 81025; 85025; 96374; 96375; 99284; J1170; J2405; J3010; J7120

== ENCOUNTER 2020-02-14 20:06 | Emergency (ER) | payer MEDICAID ==
[2020-02-14] MEDS ORDERED: Sodium Chloride 0.9% 1,000 ML IV STA (20:38)
[2020-02-14] MEDS ORDERED: Sodium Chloride 0.9% 10 ML Syringe FLUSH PRN (20:38)
[2020-02-14] MEDS ORDERED: Ondansetron 4 MG/2 ML SDV IVPUSH ONE (20:38)
[2020-02-14] MEDS ORDERED: HYDROmorphone 1 MG/ML Syringe IVPUSH ONE (20:39)
--- NOTE | 2020-02-14 21:24 | EDM.PDOC ---
ED HPI GENERAL MEDICAL PROBLEM - General Chief Complaint: Abdominal Pain Stated Complaint: LEFT SIDE CYST PAIN Time Seen by Provider: 02/14/20 20:15 Source of Information: Reports: Patient History Limitations: Reports: No Limitations - History of Present Illness INITIAL COMMENTS - FREE TEXT/NARRATIVE: The patient presents with pelvic and abdominal pain and vaginal bleeding. She has a know hemorrhagic cyst. She was seen here about 15 days ago and she had an US that showed a 4.3cm cyst in the let ovary. She has been having vaginal bleeding for the past 14 days. She has a history of an ovarian cyst and it grew to the size of a cantaloupe and she needed surgery. She sees Dr Mcwilliams and she cannot get in to see her until February 26 and another US will be done then. She is having more pain and bleeding so she came in now. She has no fever but she does have chills. She has nausea and vomiting at times. She still has been having intercourse and may be . She has no dysuria or diarrhea. Onset: Gradual Duration: Week(s): Location: Reports: Abdomen, Pelvis Quality: Reports: Sharp Severity: Severe Improves with: Reports: None Worsens with: Reports: None Associated Symptoms: Reports: Fever/Chills, Nausea/Vomiting. 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 Denies: Fever HEENT: Reports: No Symptoms Respiratory: Reports: No Symptoms Cardiovascular: Reports: No Symptoms Endocrine: Reports: No Symptoms GI/Abdominal: Reports: Abdominal Pain, Nausea, Vomiting. Denies: Diarrhea : Reports: Other (Vaginal bleeding) Musculoskeletal: Reports: No Symptoms ED EXAM, GI/ABD - Physical Exam Exam: See Below Exam Limited By: No Limitations General Appearance: Alert, No Apparent Distress Ears: Normal External Exam Nose: Normal Inspection Head: Atraumatic, Normocephalic Neck: Normal Inspection Respiratory/Chest: No Respiratory Distress, Lungs Clear, Normal Breath Sounds Cardiovascular: Regular Rate, Rhythm, No Edema, No Murmur GI/Abdominal Exam: Soft, No Organomegaly, No Mass, Tender (Moderate tenderness to the left lower abdomen) Course - Vital Signs Last Recorded V/S: Last Vital Signs Temp 98.1 F 02/14/20 20:24 Pulse 76 02/14/20 20:24 Resp 20 02/14/20 20:24 BP 120/81 02/14/20 20:24 Pulse Ox 100 02/14/20 20:24 - Orders/Labs/Meds Orders: Active Orders 24 hr Category Date Time Status Peripheral IV Care [RC] . DIRECTED Care 02/14/20 20:38 Active Sodium Chloride 0.9% [Saline Flush] Med 02/14/20 20:38 Active 10 ml FLUSH ASDIRECTED PRN ED Antiemetic Medication Reflex [OM.PC] Stat Oth 02/14/20 20:38 Ordered Peripheral IV Insertion Adult [OM.PC] Stat Oth 02/14/20 20:38 Ordered Medication Orders Sodium Chloride (Saline Flush) 10 ml FLUSH ASDIRECTED PRN PRN Reason: Keep Vein Open Last Admin: 02/14/20 20:59 Dose: 10 ml Documented by: MARY Labs: Laboratory Tests 02/14/20 02/14/20 02/14/20 Range/Units 20:51 20:51 20:51 WBC 7.41 (3.98-10.04) K/mm3 RBC 4.51 (3.98-5.22) M/mm3 Hgb 13.6 (11.2-15.7) gm/dl Hct 41.7 (34.1-44.9) % MCV 92.5 (79.4-94.8) fl MCH 30.2 (25.6-32.2) pg MCHC 32.6 (32.2-35.5) g/dl RDW Std Deviation 42.9 (36.4-46.3) fL Plt Count 272 (182-369) K/mm3 MPV 9.9 (9.4-12.3) fl Neut % (Auto) 55.3 (34.0-71.1) % Lymph % (Auto) 32.8 (19.3-51.7) % [place] % (Auto) 8.0 (4.7-12.5) % Eos % (Auto) 3.5 (0.7-5.8) Baso % (Auto) 0.3 (0.1-1.2) % Neut # (Auto) 4.10 (1.56-6.13) K/mm3 Lymph # (Auto) 2.43 (1.18-3.74) K/mm3 [place] # (Auto) 0.59 H (0.24-0.36) K/mm3 Eos # (Auto) 0.26 (0.04-0.36) K/mm3 Baso # (Auto) 0.02 (0.01-0.08) K/mm3 Sodium 145 (136-145) mEq/L Potassium 3.5 (3.5-5.1) mEq/L Chloride 107 (98-107) mEq/L Carbon Dioxide 28 (21-32) mEq/L Anion Gap 13.5 (5-15) BUN 12 (7-18) mg/dL Creatinine 0.8 (0.55-1.02) mg/dL Est Cr Clr Drug Dosing 85.02 mL/min Estimated GFR (MDRD) > 60 (>60) mL/min BUN/Creatinine Ratio 15.0 (14-18) Glucose 94 (74-106) mg/dL Calcium 9.1 (8.5-10.1) mg/dL Total Bilirubin 0.4 (0.2-1.0) mg/dL AST 9 L (15-37) U/L ALT 17 (14-59) U/L Alkaline Phosphatase 80 (46-116) U/L Total Protein 7.9 (6.4-8.2) g/dl Albumin 4.5 (3.4-5.0) g/dl Globulin 3.4 gm/dL Albumin/Globulin Ratio 1.3 (1-2) Lipase 83 (73-393) U/L HCG, Qual Negative (NEGATIVE) Urine Color (Yellow) Urine Appearance (Clear) Urine pH (5.0-8.0) Ur Specific [place] (1.005-1.030) Urine Protein (Negative) Urine Glucose (UA) (Negative) Urine Ketones (Negative) Urine Occult Blood (Negative) Urine Nitrite (Negative) Urine Bilirubin (Negative) Urine Urobilinogen (0.2-1.0) Ur Leukocyte Esterase (Negative) Urine RBC (0-5) /hpf Urine WBC (0-5) /hpf Ur Squamous Epith Cells (0-5) /hpf Urine Bacteria (FEW) /hpf Urine Mucus (FEW) /hpf /16/ Range/Units 21:05 WBC (3.98-10.04) K/mm3 RBC (3.98-5.22) M/mm3 Hgb (11.2-15.7) gm/dl Hct (34.1-44.9) % MCV (79.4-94.8) fl MCH (25.6-32.2) pg MCHC (32.2-35.5) g/dl RDW Std Deviation (36.4-46.3) fL Plt Count (182-369) K/mm3 MPV (9.4-12.3) fl Neut % (Auto) (34.0-71.1) % Lymph % (Auto) (19.3-51.7) % [place] % (Auto) (4.7-12.5) % Eos % (Auto) (0.7-5.8) Baso % (Auto) (0.1-1.2) % Neut # (Auto) (1.56-6.13) K/mm3 Lymph # (Auto) (1.18-3.74) K/mm3 [place] # (Auto) (0.24-0.36) K/mm3 Eos # (Auto) (0.04-0.36) K/mm3 Baso # (Auto) (0.01-0.08) K/mm3 Sodium (136-145) mEq/L Potassium (3.5-5.1) mEq/L Chloride (98-107) mEq/L Carbon Dioxide (21-32) mEq/L Anion Gap (5-15) BUN (7-18) mg/dL Creatinine (0.55-1.02) mg/dL Est Cr Clr Drug Dosing mL/min Estimated GFR (MDRD) (>60) mL/min BUN/Creatinine Ratio (14-18) Glucose (74-106) mg/dL Calcium (8.5-10.1) mg/dL Total Bilirubin (0.2-1.0) mg/dL AST (15-37) U/L ALT (14-59) U/L Alkaline Phosphatase (46-116) U/L Total Protein (6.4-8.2) g/dl Albumin (3.4-5.0) g/dl Globulin gm/dL Albumin/Globulin Ratio (1-2) Lipase (73-393) U/L HCG, Qual (NEGATIVE) Urine Color Yellow (Yellow) Urine Appearance Clear (Clear) Urine pH 5.5 (5.0-8.0) Ur Specific [place] > or = 1.030 (1.005-1.030) Urine Protein Negative (Negative) Urine Glucose (UA) Negative (Negative) Urine Ketones Trace H (Negative) Urine Occult Blood Trace-lysed H (Negative) Urine Nitrite Negative (Negative) Urine Bilirubin Negative (Negative) Urine Urobilinogen 0.2 (0.2-1.0) Ur Leukocyte Esterase Negative (Negative) Urine RBC 0-5 (0-5) /hpf Urine WBC 0-5 (0-5) /hpf Ur Squamous Epith Cells 5-10 H (0-5) /hpf Urine Bacteria Few (FEW) /hpf Urine Mucus Many H (FEW) /hpf Meds: Medications Generic Name Dose Route Start Last Admin Trade Name Freq PRN Reason Stop Dose Admin Sodium Chloride 10 ml 02/14/20 20:38 02/14/20 20:59 Saline Flush FLUSH 10 ml ASDIRECTED PRN Administration Keep Vein Open Discontinued Medications Generic Name Dose Route Start Last Admin Trade Name Freq PRN Reason Stop Dose Admin Hydromorphone HCl 1 mg 02/14/20 20:39 02/14/20 20:58 Dilaudid IVPUSH 07/16/20 20:40 1 mg ONETIME ONE Administration Sodium Chloride 1,000 mls @ 1,000 mls/hr 02/14/20 20:38 02/14/20 20:55 Normal Saline IV 02/14/20 21:37 1,000 mls/hr .BOLUS STA Administration Ondansetron HCl 4 mg 02/14/20 20:38 02/14/20 20:55 Zofran IVPUSH 02/14/20 20:39 4 mg ONETIME ONE Administration - Re-Assessments/Exams Free Text/Narrative Re-Assessment/Exam: 02/14/20 21:27 I ordered an IV NS 1L bolus, zofran 4mg IV, dilaudid 1mg IV, labs and an US. 02/14/20 21:56 Her CBC and CMP look good. Her UA shows no UTI. Her HCG is negative. I am waiting for the US now. 02/14/20 22:10 The US shows previous hemorrhagic cyst seen on earlier US of 01/30/20 has resolved on current study. Several subendometrial calcifications within the uterus believed to be incidental. No additional abnormality is seen on pelvic US exam. She feels better. I will discharge her home. Departure - Departure Time of Disposition: 22:15 Disposition: Home, Self-Care 01 Condition: Good Clinical Impression: Lower abdominal pain, History of endometriosis, Vaginal bleeding - Discharge Information *PRESCRIPTION DRUG MONITORING PROGRAM REVIEWED*: Not Applicable *COPY OF PRESCRIPTION DRUG MONITORING REPORT IN PATIENT MIKE: Not Applicable Referrals: Ophelia Mcwilliams MD [Primary Care Provider] - 1 Week Forms: ED Department Discharge Additional Instructions: Take motrin or aleve for pain. Drink plenty of fluids. Follow up with Dr Mciwlliams. Please return if you are worse. Sepsis Event Note (ED) - Evaluation Sepsis Screening Result: No Definite Risk - Focused Exam Vital Signs: Vital Signs Temp Pulse Resp BP Pulse Ox 02/14/20 20:24 98.1 F 76 20 120/81 100 - My Orders Last 24 Hours: My Active Orders 02/14/20 20:38 Peripheral IV Care [RC] . DIRECTED Sodium Chloride 0.9% [Saline Flush] 10 ml FLUSH ASDIRECTED PRN ED Antiemetic Medication Reflex [OM.PC] Stat Peripheral IV Insertion Adult [OM.PC] Stat - Assessment/Plan Last 24 Hours: My Active Orders 02/14/20 20:38 Peripheral IV Care [RC] . DIRECTED Sodium Chloride 0.9% [Saline Flush] 10 ml FLUSH ASDIRECTED PRN ED Antiemetic Medication Reflex [OM.PC] Stat Peripheral IV Insertion Adult [OM.PC] Stat
--- NOTE | 2020-02-14 21:57 | US ---
Pelvic ultrasound: Multiple real-time images were obtained transvaginally. Comparison: Previous pelvic ultrasound study of 01/30/20. Findings: Uterus is anteverted. No myometrial abnormality is seen. Several subendometrial calcifications are seen which are felt to be incidental. Endometrial thickness is 4.3 mm. Right ovary shows follicles. Left ovary shows resolution of the previous hemorrhagic cyst. Follicles are seen within the left ovary. No free fluid is seen. Impression: 1. Previous hemorrhagic cyst seen on earlier ultrasound of 01/30/20 has resolved on current study. 2. Several subendometrial calcifications within the uterus believed to be incidental. 3. No additional abnormality is seen on pelvic ultrasound exam. Diagnostic code #2 This report was dictated in MDT
== END 2020-02-14 22:19 | disposition home or self-care (01) ==
LOC: MERGE 20:06 → JD.ED 20:06
DX: N93.9 Abnormal uterine and vaginal bleeding, unspecified (principal); R10.32 Left lower quadrant pain; Z88.6 Allergy status to analgesic agent; Z79.899 Other long term (current) drug therapy
CPT/HCPCS: 36415; 76830; 80053; 81001; 83690; 84703; 85025; 96361; 96374; 96375; 99284; J1170; J2405; J7030

== ENCOUNTER 2020-03-16 15:06 | Emergency (ER) | payer MEDICAID ==
--- NOTE | 2020-03-16 15:39 | EDM.PDOC ---
ED HPI GENERAL MEDICAL PROBLEM - General Chief Complaint: Respiratory Problem Stated Complaint: COUGH/SORE THROAT/WEAK Time Seen by Provider: 03/16/20 15:39 Source of Information: Reports: Patient History Limitations: Reports: No Limitations - History of Present Illness INITIAL COMMENTS - FREE TEXT/NARRATIVE: 25-year-old female attends the ED due to experiencing a severe sore throat that started yesterday associated with the development of fever and generalized myalgia. Complete loss of appetite. She had a cough about a week ago which was minimally productive. She states that it did seem to go away for couple days but started back up again yesterday. Her abdominal muscles are sore from coughing so much. No diarrhea nausea or vomiting. Believes no chance for . No genitourinary complaints. Onset: Sudden (Sore throat started suddenly yesterday) Onset Date: 03/15/20 Duration: Hour(s):, Constant, Getting Worse Location: Reports: Neck (Sore throat), Chest Quality: Reports: Ache, Burning, Other Severity: Severe (Following feels leg swelling razor blades.) Improves with: Reports: None Worsens with: Reports: Eating Context: Reports: Other. Denies: Activity, Exercise, Lifting, Sick Contact, Trauma Associated Symptoms: Reports: Cough, Fever/Chills, Loss of Appetite, Malaise (Nonproductive), Weakness. 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: Acetaminophen (About an hour prior to coming to the ED.) Generalized Pain Score (Numeric/FACES): 8 - Related Data Allergies Allergy/AdvReac Type Severity Reaction Status Date / Time tramadol Allergy Severe Headache Verified 03/16/20 15:27 Home Meds: Home Meds lamoTRIgine [LaMICtal] 150 mg PO DAILY 01/30/20 [History] traZODone HCl [Trazodone HCl] 100 mg PO BEDTIME 03/16/20 [History] Past Medical History HEENT History: Reports: Other (See Below) Other HEENT History: left ear drum reconstruction Genitourinary History: Reports: Renal Calculus Other Genitourinary History: endometriosis 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: 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, Other (See Below) Other DIRECTOR OF INSTRUMENTAL MUSIC History: ovarian cyst right side-partiaal ovary removed Psychiatric History: Reports: PTSD - Past Surgical History Female Surgical History: Reports: Section, Lithotripsy/ESWL Social & Family History - Family History Family Medical History: Noncontributory - Tobacco Use Used Tobacco, but Quit: Yes Month/Year Tobacco Last Used: 2019 - Caffeine Use Caffeine Use: Reports: Soda - Recreational Drug Use Recreational Drug Use: No - Living Situation & Occupation Living situation: Reports: Single Occupation: Employed ED ROS GENERAL - Review of Systems Review Of Systems: See Below Constitutional: Reports: Fever, Chills, Malaise, Weakness, Fatigue, Decreased Appetite. Denies: Weight Loss HEENT: Reports: Throat Pain. Denies: Ear Pain Respiratory: Reports: Cough. Denies: Shortness of Breath, Wheezing, Pleuritic Chest Pain, Sputum, Hemoptysis Cardiovascular: Reports: Chest Pain (Chest discomfort from coughing.), Dyspnea on Exertion, Lightheadedness. Denies: Blood Pressure Problem, Claudication, Edema, Orthopnea Endocrine: Reports: Fatigue GI/Abdominal: Reports: No Symptoms, Abdominal Pain, Decreased Appetite. Denies: Constipation (His abdominal muscles are sore from coughing so much.), Diarrhea, Difficulty Swallowing, Distension, Hematemesis, Hematochezia, Melena : Reports: No Symptoms Musculoskeletal: Reports: Muscle Pain Skin: Reports: No Symptoms (Generalized myalgia) Neurological: Reports: Dizziness Psychiatric: Reports: No Symptoms Hematologic/Lymphatic: Reports: No Symptoms Immunologic: Reports: No Symptoms ED EXAM, GENERAL - Physical Exam Exam: See Below Exam Limited By: No Limitations General Appearance: Alert, WD/WN, Mild Distress, Other (Peers ill. She is febrile to palpation. Nurses recorded temperature is 36.4 but she feels much warmer than this. Heart rate was 110 and sinus. Respiratory rate was 18. Sats are 98% on room air BP 115/78.) Eye Exam: Bilateral Eye: Normal Inspection, PERRL Ears: Normal TMs Throat/Mouth: Other (Oropharynx is diffusely erythematous particularly across Waldeyer's ring in the posterior oropharynx. The tonsils themselves are normal with no exudate.) Head: Atraumatic, Normocephalic Neck: Normal Inspection, Supple, Full Range of Motion, Lymphadenopathy (L), Lymphadenopathy (R) (Moderate moderate and tender) Respiratory/Chest: No Respiratory Distress, Lungs Clear, Normal Breath Sounds, No Accessory Muscle Use. No: Crackles, Rales, Rhonchi, Wheezing Cardiovascular: Normal Peripheral Pulses, No Edema, No Gallop, No Murmur, No Rub, Tachycardia (No tachycardia at 110/min.) Peripheral Pulses: 3+: Carotid (L), Carotid (R) GI/Abdominal: Normal Bowel Sounds, Soft, Non-Tender, No Organomegaly, No Abnormal Bruit, No Mass, Pelvis Stable Extremities: Normal Inspection, Normal Range of Motion, Non-Tender, No Pedal Edema Neurological: Alert, Oriented, CN II-XII Intact, Normal Cognition Psychiatric: Normal Affect, Normal Mood Skin Exam: Warm, Dry, Intact, Normal Color Course - Vital Signs Last Recorded V/S: Last Vital Signs Temp 36.4 C 03/16/20 15:23 Pulse 89 03/16/20 15:23 Resp 98 H 03/16/20 15:23 BP 115/78 03/16/20 15:23 Pulse Ox 98 03/16/20 15:23 - Orders/Labs/Meds Labs: Laboratory Tests 03/16/20 03/16/20 03/16/20 Range/Units 16:25 16:25 16:25 WBC 8.63 (3.98-10.04) K/mm3 RBC 4.08 (3.98-5.22) M/mm3 Hgb 12.5 (11.2-15.7) gm/dl Hct 38.6 (34.1-44.9) % MCV 94.6 (79.4-94.8) fl MCH 30.6 (25.6-32.2) pg MCHC 32.4 (32.2-35.5) g/dl RDW Std Deviation 44.0 (36.4-46.3) fL Plt Count 222 (182-369) K/mm3 MPV 9.9 (9.4-12.3) fl Neut % (Auto) 69.6 (34.0-71.1) % Lymph % (Auto) 19.8 (19.3-51.7) % [place] % (Auto) 9.6 (4.7-12.5) % Eos % (Auto) 0.6 L (0.7-5.8) Baso % (Auto) 0.2 (0.1-1.2) % Neut # (Auto) 6.00 (1.56-6.13) K/mm3 Lymph # (Auto) 1.71 (1.18-3.74) K/mm3 [place] # (Auto) 0.83 H (0.24-0.36) K/mm3 Eos # (Auto) 0.05 (0.04-0.36) K/mm3 Baso # (Auto) 0.02 (0.01-0.08) K/mm3 Sodium 139 (136-145) mEq/L Potassium 3.7 (3.5-5.1) mEq/L Chloride 105 (98-107) mEq/L Carbon Dioxide 25 (21-32) mEq/L Anion Gap 12.7 (5-15) BUN 8 (7-18) mg/dL Creatinine 0.6 (0.55-1.02) mg/dL Est Cr Clr Drug Dosing 112.93 mL/min Estimated GFR (MDRD) > 60 (>60) mL/min BUN/Creatinine Ratio 13.3 L (14-18) Glucose 93 (74-106) mg/dL Calcium 8.6 (8.5-10.1) mg/dL Ferritin (8-252) ng/ml Total Bilirubin 0.3 (0.2-1.0) mg/dL AST 11 L (15-37) U/L ALT 15 (14-59) U/L Alkaline Phosphatase 71 (46-116) U/L Lactate Dehydrogenase (81-234) U/L C-Reactive Protein 3.9 H* (<1.0) mg/dL Total Protein 6.8 (6.4-8.2) g/dl Albumin 3.9 (3.4-5.0) g/dl Globulin 2.9 gm/dL Albumin/Globulin Ratio 1.3 (1-2) COVID-19 PCR Not detected (NOT DETECT) 03/16/20 03/16/20 Range/Units 16:25 16:25 WBC (3.98-10.04) K/mm3 RBC (3.98-5.22) M/mm3 Hgb (11.2-15.7) gm/dl Hct (34.1-44.9) % MCV (79.4-94.8) fl MCH (25.6-32.2) pg MCHC (32.2-35.5) g/dl RDW Std Deviation (36.4-46.3) fL Plt Count (182-369) K/mm3 MPV (9.4-12.3) fl Neut % (Auto) (34.0-71.1) % Lymph % (Auto) (19.3-51.7) % [place] % (Auto) (4.7-12.5) % Eos % (Auto) (0.7-5.8) Baso % (Auto) (0.1-1.2) % Neut # (Auto) (1.56-6.13) K/mm3 Lymph # (Auto) (1.18-3.74) K/mm3 [place] # (Auto) (0.24-0.36) K/mm3 Eos # (Auto) (0.04-0.36) K/mm3 Baso # (Auto) (0.01-0.08) K/mm3 Sodium (136-145) mEq/L Potassium (3.5-5.1) mEq/L Chloride (98-107) mEq/L Carbon Dioxide (21-32) mEq/L Anion Gap (5-15) BUN (7-18) mg/dL Creatinine (0.55-1.02) mg/dL Est Cr Clr Drug Dosing mL/min Estimated GFR (MDRD) (>60) mL/min BUN/Creatinine Ratio (14-18) Glucose (74-106) mg/dL Calcium (8.5-10.1) mg/dL Ferritin 38 (8-252) ng/ml Total Bilirubin (0.2-1.0) mg/dL AST (15-37) U/L ALT (14-59) U/L Alkaline Phosphatase (46-116) U/L Lactate Dehydrogenase 130 (81-234) U/L C-Reactive Protein (<1.0) mg/dL Total Protein (6.4-8.2) g/dl Albumin (3.4-5.0) g/dl Globulin gm/dL Albumin/Globulin Ratio (1-2) COVID-19 PCR (NOT DETECT) Meds: Medications Discontinued Medications Generic Name Dose Route Start Last Admin Trade Name Freq PRN Reason Stop Dose Admin Dextrose/Sodium Chloride 1,000 mls @ 999 mls/hr 03/16/20 16:15 03/16/20 16:21 Dextrose 5%-Normal Saline IV 999 mls/hr ASDIRECTED [place]ER[place]IA Administration Ketorolac Tromethamine 30 mg 03/16/20 16:15 03/16/20 16:22 Toradol IVPUSH 30 mg ONETIME GER[place]IA Administration - Radiology Interpretation Free Text/Narrative:: 25-year-old female presents to the ED with acute onset of severe sore throat starting yesterday which is worsened today. Feels like she is swallowing razor blades when she swallows. She still has her tonsils in. Generalized myalgia loss of appetite. She has had a paroxysmal nonproductive cough for about 10 days. It was worse for the first 7 days then seemed to ease up until starting up again yesterday. Generalized myalgia. No nausea vomiting or diarrhea. Mild headache. Exam reveals diffuse oropharyngitis suggestive of strep throat. Marked bilateral submandibular adenopathy. She has had previous infectious mononucleosis. Mild tachycardia on examination secondary to fever. Lungs were clear to all station percussion. Plan rapid strep and culture. COVID screening which will be a send out to public health. 1 view of the chest to be done due to 10-day history of coughing. Routine labs to be performed CBC CMP and a CRP. Given D5 normal saline IV at open Toradol 30 mg IV for pain relief. - Re-Assessments/Exams Free Text/Narrative Re-Assessment/Exam: 03/16/20 16:55 White count is 8.63. Auto differential is 70%. Hemoglobin is 12.5 with hematocrit of 38.6 platelet count is 222,000. Audible chest x-ray is completely normal. Cardiac silhouette is normal visualized lung nichols are clear no pneumothorax no pleural effusion. No evidence of pneumonia. 03/16/20 17:00 Sodium is 139 with a potassium of 3.7. Chloride 105 with a bicarb of 25. Anion gap is 12.7. BUN is 8 with a creatinine of 0.6. GFR is greater than 60. Glucose is 93 with a calcium of 8.6. Liver function is normal. C-reactive protein is elevated at 3.9. Rapid strep screen is pending. 03/16/20 17:30 strep screen came back negative. Patient is feeling better after a liter of IV fluids and Toradol 30 mg IV. She will be quarantined at home until we find out her COVID status. Note will be given in this regard. She will continue Motrin 600 mg every 6 hours to relieve pain and inflammation. Plenty of fluids such as Gatorade or Powerade to maintain hydration. Departure - Departure Time of Disposition: 17:31 Disposition: Home, Self-Care 01 Condition: Fair Clinical Impression: Viral upper respiratory tract infection with cough - Discharge Information *PRESCRIPTION DRUG MONITORING PROGRAM REVIEWED*: Not Applicable *COPY OF PRESCRIPTION DRUG MONITORING REPORT IN PATIENT MIKE: Not Applicable Instructions: Viral Respiratory Infection, [id number], Upper Respiratory Infection, Adult, [id number] Referrals: Amaris Cole PA-C [Primary Care Provider] - Forms: ED Department Discharge, ED Return to Work/School Form Additional Instructions: Evaluation in the emergency room today in regards to persistent illness for the last 10days with a paroxysmal cough for the first week and then a small short break until return of cough. Development of acute severe sore throat yesterday making it difficult to swallow with associated fever and chills. Generalized body aches due to inflammation. Chest x-ray done reveals no evidence of pneumonia. Lab work reveals normal white blood cell count with no signs of bacterial infection. Liver function kidney function all normal. Rapid strep screen of the throat was negative for group A strep infection. A culture will be done on the throat swab which will be available tomorrow. Concern is for possible COVID-19 infection. You have been swab for this infection and it will be sent to the public health lab in [place] tomorrow morning with results usually available on Tuesday. In the meantime you are to be quarantined at home until we know the results of your COVID test. Work note given to excuse from the workplace until we identify whether or not your COVID positive. You should self isolate which means staying home with family members. Plenty of fluids such as Gatorade or Powerade to maintain hydration. Motrin 600 mg every 6 hours to reduce pain and inflammation. Next dose would be due approximately 9:00 tonight. You should get an answer from the emergency room in regards to your COVID status on Tuesday. Sepsis Event Note (ED) - Evaluation Sepsis Screening Result: No Definite Risk
[2020-03-16] MEDS ORDERED: Dextrose 5%-0.9% NaCl 1,000 ML IV SCH (16:15)
[2020-03-16] MEDS ORDERED: Ketorolac 30 MG/ML SDV IVPUSH SCH (16:15)
--- NOTE | 2020-03-16 17:07 | CR ---
Chest: Portable view of the chest was obtained. Comparison: No prior chest imaging is available. Heart size and mediastinum are normal. Lungs are clear with no acute parenchymal change. Bony structures are grossly intact. Impression: 1. Nothing acute is seen on portable chest x-ray. Diagnostic code #1 This report was dictated in MDT
== END 2020-03-16 18:05 | disposition home or self-care (01) ==
LOC: MERGE 15:06 → JD.ED 15:06
DX: J06.9 Acute upper respiratory infection, unspecified (principal); Z88.6 Allergy status to analgesic agent; Z79.899 Other long term (current) drug therapy; Z20.828 Contact with and (suspected) exposure to other viral communicable diseases
CPT/HCPCS: 36415; 71045; 80053; 82728; 83615; 85025; 86140; 87077; 87081; 87430; 87635; 96374; 99283; J1885; J7042; U0002

== ENCOUNTER 2020-05-09 23:23 | Emergency (ER) | payer MEDICAID, MEDICARE, OTHER ==
[2020-05-09] MEDS ORDERED: Sodium Chloride 0.9% 1,000 ML IV SCH (23:30)
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
[2020-05-10] MEDS ORDERED: Sodium Chloride 0.9% 10 ML Syringe FLUSH ONE (00:05)
[2020-05-10] MEDS ORDERED: Iopamidol 612 MG/ML 100 ML Bottle IVPUSH ONE (00:05)
[2020-05-10] MEDS ORDERED: Ibuprofen 600 MG Tab PO ONE (00:26)
[2020-05-10] MEDS ORDERED: Potassium Chloride 20 MEQ Tab.ER PO ONE (01:28)
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
== END 2020-05-10 03:00 | disposition home or self-care (01) ==
LOC: JD.ED 23:23 → SUPCPDRO 23:23 → JD.ED 05-10 03:00
DX: S16.1XXA Strain of muscle, fascia and tendon at neck level, initial encounter (principal); M25.531 Pain in right wrist; M25.511 Pain in right shoulder; F17.210 Nicotine dependence, cigarettes, uncomplicated; Z88.5 Allergy status to narcotic agent; V49.40XA Driver injured in collision with unspecified motor vehicles in traffic accident, initial encounter
CPT/HCPCS: 36415; 70450; 71045; 71260; 72125; 74177; 80053; 80306; 80307; 81001; 81025; 83735; 85007; 85027; 99285; A9270; J7030; Q9967; 99283

== ENCOUNTER 2020-05-10 09:29 | Emergency (ER) | payer MEDICAID ==
[2020-05-10] MEDS ORDERED: Promethazine 25 MG/ML SDV IM ONE (10:22)
[2020-05-10] MEDS ORDERED: HYDROmorphone 1 MG/ML Syringe IVPUSH ONE (10:22)
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
== END 2020-05-10 11:00 | disposition home or self-care (01) ==
LOC: JD.ED 09:29
DX: S13.4XXA Sprain of ligaments of cervical spine, initial encounter (principal); S80.02XA Contusion of left knee, initial encounter; S80.211A Abrasion, right knee, initial encounter; M54.5 Low back pain; M25.531 Pain in right wrist; M25.532 Pain in left wrist; Z88.5 Allergy status to narcotic agent; V89.2XXA Person injured in unspecified motor-vehicle accident, traffic, initial encounter
CPT/HCPCS: 96372; 96374; 99283; J1170; J2550

== ENCOUNTER 2020-08-02 12:39 | Emergency (ER) | payer MEDICAID ==
[2020-08-02] MEDS ORDERED: Sodium Chloride 0.9% 10 ML Syringe FLUSH PRN (13:15)
[2020-08-02] MEDS ORDERED: Sodium Chloride 0.9% 1,000 ML IV ONE (13:16)
--- NOTE | 2020-08-02 13:24 | EDM.PDOC ---
ED HPI GENERAL MEDICAL PROBLEM - General Chief Complaint: CHIEF SECURITY AND SAFETY OFFICER Problem Stated Complaint: POSS MISCARRIAGE/4-5 WEEKS PG Time Seen by Provider: 08/02/20 13:04 Source of Information: Reports: Patient, RN Notes Reviewed History Limitations: Reports: No Limitations - History of Present Illness INITIAL COMMENTS - FREE TEXT/NARRATIVE: Patient is a 25-year-old female who presents to the ED for a possible miscarriage. Patient is a G2, P1 at this time. Her last , was full-term and uneventful in [place]. Patient notes she took 2 tests at home that were positive, 1 yesterday and 1 this morning. As she was sitting on the toilet this morning, she noticed some blood in the toilet, along with some clot- like material at the bottom of the toilet. She had some light low back pain last night, but since this morning and the bleeding, she is having increased cramping, in her low abdomen, this makes her dizzy or lightheaded at times. She did not take anything for pain management. She is not complaining of any urinary symptoms, like frequency/urgency, or dysuria. She is not complaining any fevers or chills, cough or shortness of breath. Patient notes that she and her significant other were trying for . 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 History: Reports: 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, Other (See Below) : 2 Para: 1 Other CHIEF SECURITY AND SAFETY OFFICER History: ovarian cyst right side-partial ovary removed Psychiatric History: Reports: PTSD - Past Surgical History HEENT Surgical History: Reports: Other (See Below), Tonsillectomy Other HEENT Surgeries/Procedures: Ear Surgery in 2018 Female Surgical History: Reports: Section, Lithotripsy/ESWL, Oophorectomy (partial right) Social & Family History - Family History Family Medical History: No Pertinent Family History - Tobacco Use Tobacco Use Status *Q: Current Every Day Tobacco User Years of Tobacco use: 13 Packs/Tins Daily: 0.5 - Caffeine Use Caffeine Use: Reports: Soda - Living Situation & Occupation Living situation: Reports: , with Family, Other, Single Occupation: Employed ED ROS GENERAL - Review of Systems Review Of Systems: Comprehensive ROS is negative, except as noted in HPI. ED EXAM - Physical Exam Exam: See Below Exam Limited By: No Limitations General Appearance: Alert, WD/WN, No Apparent Distress, Anxious (pt is tearul and anxious) Respiratory/Chest: No Respiratory Distress, Lungs Clear, Normal Breath Sounds, No Accessory Muscle Use, Chest Non-Tender Cardiovascular: Normal Peripheral Pulses, Regular Rate, Rhythm, No Edema GI/Abdominal Exam: Normal Bowel Sounds, Soft, No Distention, No Mass, Tender (bilateral lower abdomen) Heart Tones: Not Riley Movement: Not Appreciated Extremities: Normal Inspection, Normal Capillary Refill Neurological: Alert, Oriented, Normal Cognition, No Motor/Sensory Deficits Psychiatric: Normal Affect, Normal Mood, Anxious (pt tearful and slightly anxious) Skin Exam: Warm, Dry, Intact, Normal Color, No Rash Course - Vital Signs Last Recorded V/S: Last Vital Signs Temp 99.2 F 08/02/20 13:09 Pulse 101 H 08/02/20 13:09 Resp 20 08/02/20 13:09 BP 127/92 H 08/02/20 13:09 Pulse Ox 98 08/02/20 13:09 Orthostatic Blood Pressure [ 121/82 Standing] Orthostatic Blood Pressure [ 121/80 Supine] - Orders/Labs/Meds Orders: Active Orders 24 hr Category Date Time Status Peripheral IV Care [RC] . DIRECTED Care 08/02/20 13:16 Ordered PATIENT RETYPE [BBK] Routine Lab 08/02/20 14:01 Ordered Sodium Chloride 0.9% [Normal Saline] 1,000 ml Med 08/02/20 13:16 Ordered IV ONETIME Sodium Chloride 0.9% [Saline Flush] Med 08/02/20 13:15 Ordered 10 ml FLUSH ASDIRECTED PRN Peripheral IV Insertion Adult [OM.PC] Stat Oth 08/02/20 13:15 Ordered Medication Orders Sodium Chloride (Normal Saline) 1,000 mls @ 500 mls/hr IV ONETIME ONE Stop: 08/02/20 15:15 Last Admin: 08/02/20 13:36 Dose: 500 mls/hr Documented by: YARIEL Sodium Chloride (Saline Flush) 10 ml FLUSH ASDIRECTED PRN PRN Reason: Keep Vein Open Last Admin: 08/02/20 13:36 Dose: 10 ml Documented by: YARIEL Labs: Laboratory Tests 08/02/20 08/02/20 08/02/20 Range/Units 13:30 13:30 13:30 WBC 7.03 (3.98-10.04) K/mm3 RBC 4.35 (3.98-5.22) M/mm3 Hgb 12.9 (11.2-15.7) gm/dl Hct 39.2 (34.1-44.9) % MCV 90.1 D (79.4-94.8) fl MCH 29.7 (25.6-32.2) pg MCHC 32.9 (32.2-35.5) g/dl RDW Std Deviation 41.6 (36.4-46.3) fL Plt Count 226 (182-369) K/mm3 MPV 10.8 (9.4-12.3) fl Neut % (Auto) 69.9 (34.0-71.1) % Lymph % (Auto) 22.2 (19.3-51.7) % [place] % (Auto) 7.7 (4.7-12.5) % Eos % (Auto) 0 L (0.7-5.8) Baso % (Auto) 0.1 (0.1-1.2) % Neut # (Auto) 4.91 (1.56-6.13) K/mm3 Lymph # (Auto) 1.56 (1.18-3.74) K/mm3 [place] # (Auto) 0.54 H (0.24-0.36) K/mm3 Eos # (Auto) 0.00 L (0.04-0.36) K/mm3 Baso # (Auto) 0.01 (0.01-0.08) K/mm3 HCG, Quant 20.0 mIU/mL Blood Type A POSITIVE Meds: Medications Generic Name Dose Route Start Last Admin Trade Name Freq PRN Reason Stop Dose Admin Sodium Chloride 1,000 mls @ 500 mls/hr 08/02/20 13:16 08/02/20 13:36 Normal Saline IV 08/02/20 15:15 500 mls/hr ONETIME ONE Administration Sodium Chloride 10 ml 08/02/20 13:15 08/02/20 13:36 Saline Flush FLUSH 10 ml ASDIRECTED PRN Administration Keep Vein Open - Re-Assessments/Exams Free Text/Narrative Re-Assessment/Exam: 08/02/20 13:23 Patient presents to the ED for her possible miscarriage. I do think it is high ly likely that she is experiencing a miscarriage just by clinical exam and history. We will get ultrasound, give her some IV fluids, take some labs for evaluation. 08/02/20 14:10 Patient's CBC is unremarkable, she is not anemic. Blood type is A+. 08/02/20 14:57 hCG quantitative level was 20. The ultrasound was performed, but the patient did have quite a bit of pain during this and a suboptimal study was appreciated. I did discuss the case with Dr. Wick, he does agree that there is more likely a miscarriage going on, and then the ultrasound that shows minimal blood in the uterus versus a minimal gestational sac. He does recommend strict return precautions, and repeat lab testing and ultrasound on Tuesday or as early next week if possible. Departure - Departure Time of Disposition: 14:58 Disposition: Home, Self-Care 01 Condition: Good Clinical Impression: Incomplete - Discharge Information *PRESCRIPTION DRUG MONITORING PROGRAM REVIEWED*: No *COPY OF PRESCRIPTION DRUG MONITORING REPORT IN PATIENT MIKE: No Instructions: Miscarriage, [id number] Referrals: Amaris Cole PA-C [Primary Care Provider] - Forms: ED Department Discharge Additional Instructions: You were evaluated in the ER today regarding your abdominal pain/vaginal bleeding in . You did have some labs drawn, and these were within normal limits, your hCG level was 20 , your blood type is A+. Your ultrasound demonstrated an area that is suggestive of blood within the uterus. Unfortunately, The findings are most consistent with a spontaneous miscarriage at today's visit. Did discuss your case with Dr. Wick, our CHIEF SECURITY AND SAFETY OFFICER on-call, and he does agree that you are likely having a spontaneous miscarriage. He does however recommend that you present to clinic on Tuesday, for repeat lab testing and ultrasound if indicated. If you have not already established with CHIEF SECURITY AND SAFETY OFFICER, you may ask for Dr. Wick and told him that you were seen in the ER over the weekend for your miscarriage. Recommend that you do not lift anything heavier than a gallon of milk (5 lbs), do not engage in sexual activities, try to get as much pelvic rest as possible for the next few days. Please try not to exert yourself, rest and relax, and take it easy. If you are bleeding through more than 1-2 maxi pads every couple hours, this would be cause for concern to return to the ER for immediate management. Please follow up with your CHIEF SECURITY AND SAFETY OFFICER on Tuesday for repeat testing. Please return to the ED at any time if your symptoms change or worsen. Sepsis Event Note (ED) - Evaluation Sepsis Screening Result: No Definite Risk - Focused Exam Vital Signs: Vital Signs Temp Pulse Resp BP Pulse Ox 08/02/20 13:09 99.2 F 101 H 20 127/92 H 98 - My Orders Last 24 Hours: My Active Orders 08/02/20 13:15 Sodium Chloride 0.9% [Saline Flush] 10 ml FLUSH ASDIRECTED PRN Peripheral IV Insertion Adult [OM.PC] Stat 08/02/20 13:16 Peripheral IV Care [RC] . DIRECTED Sodium Chloride 0.9% [Normal Saline] 1,000 ml IV ONETIME 08/02/20 14:01 PATIENT RETYPE [BBK] Routine - Assessment/Plan Last 24 Hours: My Active Orders 08/02/20 13:15 Sodium Chloride 0.9% [Saline Flush] 10 ml FLUSH ASDIRECTED PRN Peripheral IV Insertion Adult [OM.PC] Stat 08/02/20 13:16 Peripheral IV Care [RC] . DIRECTED Sodium Chloride 0.9% [Normal Saline] 1,000 ml IV ONETIME 08/02/20 14:01 PATIENT RETYPE [BBK] Routine
--- NOTE | 2020-08-02 14:50 | US ---
First trimester obstetrical ultrasound: Multiple real-time images were obtained transabdominally. Several transvaginal images were obtained. Technologist's note: Unable to complete exam transvaginally, patient refused, could not tolerate, transabdominal images not well seen Uterus is anteverted. Endometrial thickness is 1.4 cm. Very minimal hypoechoic area is seen within the endometrial cavity which may represent minimal blood or less likely very minimal gestational sac. Ovaries are not seen. Impression: 1. Very minimal hypoechoic area within the endometrial cavity which may represent minimal blood or less likely very minimal gestational sac. 2. No additional abnormality is identified on this limited exam. Diagnostic code #2
== END 2020-08-02 15:45 | disposition home or self-care (01) ==
LOC: JD.ED 12:39
DX: O03.4 Incomplete spontaneous abortion without complication (principal); F17.210 Nicotine dependence, cigarettes, uncomplicated; Z88.5 Allergy status to narcotic agent; Z79.899 Other long term (current) drug therapy
CPT/HCPCS: 36415; 76817; 84702; 85025; 86900; 86901; 99284; J7030; 99283

== ENCOUNTER 2020-08-26 10:05 | Emergency (ER) | payer MEDICAID, SELFPAY, OTHER ==
[2020-08-26] MEDS ORDERED: Ketorolac 30 MG/ML SDV IVPUSH ONE (10:45)
[2020-08-26] MEDS ORDERED: Sodium Chloride 0.9% 1,000 ML IV ONE (10:45)
[2020-08-26] MEDS ORDERED: Sodium Chloride 0.9% 10 ML Syringe FLUSH PRN (10:45)
[2020-08-26] MEDS ORDERED: Ondansetron 4 MG/2 ML SDV IVPUSH ONE (10:45)
--- NOTE | 2020-08-26 11:05 | EDM.PDOC ---
ED HPI GENERAL MEDICAL PROBLEM - General Chief Complaint: Genitourinary Problem Stated Complaint: PAINFUL URINATION, BACK AND SIDE PAIN Time Seen by Provider: 08/26/20 10:10 Source of Information: Reports: Patient History Limitations: Reports: No Limitations, Other (ED vital signs reveal a temp of 98.6, pulse 73, respiratory rate 16, blood pressure 108/68, pulse ox 100% on room air) - History of Present Illness INITIAL COMMENTS - FREE TEXT/NARRATIVE: 25-year-old female presents to the emergency department with complaints of right flank pain radiating down into her right groin. She also reports a 4-day history of chills and generalized body aches. She states she has a significant history of UTIs and kidney stones. She also reports passing a kidney stone about 2 days ago but the pain to her flank radiating around into her groin and bladder has not eased up at all. She also reports frequency and burning when voiding. She states that her urine has been dark-colored as well. Has denied vomiting but she has been nauseated over the course of the last couple of days and has been trying trying to increase her fluid intake with water and 7-Up. She denies diarrhea but does note she has been constipated over the last several days. She has been using Aleve and Tylenol for the discomfort but this has not helped at all. She does have costovertebral tenderness on the right side as well. Onset: Gradual Abdomen Pain Score (Numeric/FACES): 7 - Related Data Allergies Allergy/AdvReac Type Severity Reaction Status Date / Time tramadol Allergy Severe Hives Verified 08/26/20 10:13 Home Meds: Home Meds lamoTRIgine [Lamotrigine] 75 mg PO BID 05/09/20 [History] ClonazePAM [KlonoPIN] 0.5 mg PO BID PRN 05/10/20 [History] Prazosin HCl [Prazosin] 2 mg PO BEDTIME 08/26/20 [History] cephALEXin [Keflex] 500 mg PO BID #14 cap 08/26/20 [Rx] hydrOXYzine HCL [Atarax] 25 mg PO BEDTIME 08/26/20 [History] Past Medical History HEENT History: Reports: Other (See Below) Other HEENT History: left ear drum reconstruction Cardiovascular History: Reports: None Respiratory History: Reports: None Gastrointestinal History: Reports: None Genitourinary History: Reports: Renal Calculus Other Genitourinary History: endometriosis 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, Other (See Below) Other BUS AND RAIL OPERATOR History: ovarian cyst right side-partial ovary removed Musculoskeletal History: Reports: None, Other (See Below) Neurological History: Reports: None Psychiatric History: Reports: PTSD Endocrine/Metabolic History: Reports: None Hematologic History: Reports: None Immunologic History: Reports: None Oncologic (Cancer) History: Reports: None Dermatologic History: Reports: None - Infectious Disease History Infectious Disease History: Reports: None - Past Surgical History HEENT Surgical History: Reports: Other (See Below), Tonsillectomy Other HEENT Surgeries/Procedures: Ear Surgery in 2018 Female Surgical History: Reports: Section, Lithotripsy/ESWL, Oophorectomy Social & Family History - Family History Family Medical History: No Pertinent Family History - Tobacco Use Tobacco Use Status *Q: Current Every Day Tobacco User Years of Tobacco use: 13 Packs/Tins Daily: 1 - Caffeine Use Caffeine Use: Reports: Energy Drinks, Soda - Recreational Drug Use Recreational Drug Use: No - Living Situation & Occupation Living situation: Reports: , with Family, Other, Single Occupation: Employed ED ROS GENERAL - Review of Systems Review Of Systems: See Below Constitutional: Reports: Chills, Malaise, Decreased Appetite. Denies: Fever HEENT: Reports: No Symptoms Respiratory: Reports: No Symptoms Cardiovascular: Reports: No Symptoms Endocrine: Reports: No Symptoms GI/Abdominal: Reports: Abdominal Pain (Right flank radiating to groin), Constipation, Decreased Appetite, Nausea. Denies: Diarrhea, Vomiting : Reports: Flank Pain, Frequency, Pain. 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) Ears: Normal External Exam, Hearing Grossly Normal Nose: Normal Inspection Throat/Mouth: Normal Inspection, Normal Lips, Normal Voice, No Airway Compromise Head: Atraumatic Neck: Normal Inspection, Supple, Non-Tender, Full Range of Motion Respiratory/Chest: No Respiratory Distress, Lungs Clear, Normal Breath Sounds, No Accessory Muscle Use, Chest Non-Tender Cardiovascular: Normal Peripheral Pulses, Regular Rate, Rhythm, No Edema, No Murmur GI/Abdominal: Normal Bowel Sounds, Soft, Tender (Suprapubic) (Female) Exam: Deferred Rectal (Female) Exam: Deferred Back Exam: Normal Inspection, Full Range of Motion Extremities: Normal Inspection, Normal Range of Motion, Non-Tender, No Pedal Edema, Normal Capillary Refill Neurological: Alert, Oriented, Normal Cognition, Normal Reflexes Psychiatric: Normal Affect, Normal Mood Skin Exam: Warm, Dry, Intact, Normal Color, No Rash Lymphatic: No Adenopathy Course - Vital Signs Text/Narrative:: I have ordered 1 L normal saline bolus as the patient is likely dehydrated due to not eating and drinking much over the course the last few days, Toradol 30 mg IV for the discomfort and Zofran 4 mg IV for the nausea. Ordered a urinalysis with micro, urine , CBC, CMP, CRP and a CT of the abdomen and pelvis without contrast stone protocol. Last Recorded V/S: Last Vital Signs Temp 98.6 F 08/26/20 10:17 Pulse 73 08/26/20 10:17 Resp 16 08/26/20 10:17 BP 108/68 08/26/20 10:17 Pulse Ox 100 08/26/20 10:17 - Orders/Labs/Meds Orders: Active Orders 24 hr Category Date Time Status CULTURE URINE [RM] Stat Lab 08/26/20 10:10 Received Sodium Chloride 0.9% [Saline Flush] Med 08/26/20 10:45 Active 10 ml FLUSH ASDIRECTED PRN Saline Lock Insert [OM.PC] Stat Oth 08/26/20 10:45 Ordered Medication Orders Sodium Chloride (Saline Flush) 10 ml FLUSH ASDIRECTED PRN PRN Reason: Keep Vein Open Last Admin: 08/26/20 10:58 Dose: 10 ml Documented by: NIMO Labs: Laboratory Tests 08/26/20 08/26/20 08/26/20 Range/Units 10:10 10:10 10:45 WBC 12.57 H (3.98-10.04) K/mm3 RBC 4.58 (3.98-5.22) M/mm3 Hgb 13.5 (11.2-15.7) gm/dl Hct 41.9 (34.1-44.9) % MCV 91.5 (79.4-94.8) fl MCH 29.5 (25.6-32.2) pg MCHC 32.2 (32.2-35.5) g/dl RDW Std Deviation 42.9 (36.4-46.3) fL Plt Count 204 (182-369) K/mm3 MPV 11.1 (9.4-12.3) fl Neut % (Auto) 67.2 (34.0-71.1) % Lymph % (Auto) 24.7 (19.3-51.7) % Elk % (Auto) 7.1 (4.7-12.5) % Eos % (Auto) 0.6 L (0.7-5.8) Baso % (Auto) 0.2 (0.1-1.2) % Neut # (Auto) 8.45 H (1.56-6.13) K/mm3 Lymph # (Auto) 3.11 (1.18-3.74) K/mm3 Elk # (Auto) 0.89 H (0.24-0.36) K/mm3 Eos # (Auto) 0.08 (0.04-0.36) K/mm3 Baso # (Auto) 0.02 (0.01-0.08) K/mm3 Manual Slide Review Normal smear Sodium (136-145) mEq/L Potassium (3.5-5.1) mEq/L Chloride (98-107) mEq/L Carbon Dioxide (21-32) mEq/L Anion Gap (5-15) BUN (7-18) mg/dL Creatinine (0.55-1.02) mg/dL Est Cr Clr Drug Dosing mL/min Estimated GFR (MDRD) (>60) mL/min BUN/Creatinine Ratio (14-18) Glucose (74-106) mg/dL Calcium (8.5-10.1) mg/dL Total Bilirubin (0.2-1.0) mg/dL AST (15-37) U/L ALT (14-59) U/L Alkaline Phosphatase (46-116) U/L C-Reactive Protein (<1.0) mg/dL Total Protein (6.4-8.2) g/dl Albumin (3.4-5.0) g/dl Globulin gm/dL Albumin/Globulin Ratio (1-2) Urine Color Yellow (Yellow) Urine Appearance Cloudy H (Clear) Urine pH 7.0 (5.0-8.0) Ur Specific Jackson 1.025 (1.005-1.030) Urine Protein 1+ H (Negative) Urine Glucose (UA) Negative (Negative) Urine Ketones Negative (Negative) Urine Occult Blood 2+ H (Negative) Urine Nitrite Negative (Negative) Urine Bilirubin Negative (Negative) Urine Urobilinogen 0.2 (0.2-1.0) Ur Leukocyte Esterase 2+ H (Negative) Urine RBC 20-30 H (0-5) /hpf Urine WBC >100 H (0-5) /hpf Urine WBC Clumps Few (NOT SEEN) /hpf Ur Epithelial Cells 0-5 (0-5) /hpf Urine Bacteria Few (FEW) /hpf Urine Mucus Few (FEW) /hpf Urine HCG, Qual Negative (NEGATIVE) 08/26/20 Range/Units 10:45 WBC (3.98-10.04) K/mm3 RBC (3.98-5.22) M/mm3 Hgb (11.2-15.7) gm/dl Hct (34.1-44.9) % MCV (79.4-94.8) fl MCH (25.6-32.2) pg MCHC (32.2-35.5) g/dl RDW Std Deviation (36.4-46.3) fL Plt Count (182-369) K/mm3 MPV (9.4-12.3) fl Neut % (Auto) (34.0-71.1) % Lymph % (Auto) (19.3-51.7) % Elk % (Auto) (4.7-12.5) % Eos % (Auto) (0.7-5.8) Baso % (Auto) (0.1-1.2) % Neut # (Auto) (1.56-6.13) K/mm3 Lymph # (Auto) (1.18-3.74) K/mm3 Elk # (Auto) (0.24-0.36) K/mm3 Eos # (Auto) (0.04-0.36) K/mm3 Baso # (Auto) (0.01-0.08) K/mm3 Manual Slide Review Sodium 141 (136-145) mEq/L Potassium 3.8 (3.5-5.1) mEq/L Chloride 105 (98-107) mEq/L Carbon Dioxide 26 (21-32) mEq/L Anion Gap 13.8 (5-15) BUN 14 (7-18) mg/dL Creatinine 0.8 (0.55-1.02) mg/dL Est Cr Clr Drug Dosing 83.18 mL/min Estimated GFR (MDRD) > 60 (>60) mL/min BUN/Creatinine Ratio 17.5 (14-18) Glucose 92 (74-106) mg/dL Calcium 8.9 (8.5-10.1) mg/dL Total Bilirubin 0.5 (0.2-1.0) mg/dL AST 10 L (15-37) U/L ALT 12 L (14-59) U/L Alkaline Phosphatase 66 (46-116) U/L C-Reactive Protein <0.2 (<1.0) mg/dL Total Protein 7.7 (6.4-8.2) g/dl Albumin 4.7 (3.4-5.0) g/dl Globulin 3.0 gm/dL Albumin/Globulin Ratio 1.6 (1-2) Urine Color (Yellow) Urine Appearance (Clear) Urine pH (5.0-8.0) Ur Specific Jackson (1.005-1.030) Urine Protein (Negative) Urine Glucose (UA) (Negative) Urine Ketones (Negative) Urine Occult Blood (Negative) Urine Nitrite (Negative) Urine Bilirubin (Negative) Urine Urobilinogen (0.2-1.0) Ur Leukocyte Esterase (Negative) Urine RBC (0-5) /hpf Urine WBC (0-5) /hpf Urine WBC Clumps (NOT SEEN) /hpf Ur Epithelial Cells (0-5) /hpf Urine Bacteria (FEW) /hpf Urine Mucus (FEW) /hpf Urine HCG, Qual (NEGATIVE) Meds: Medications Generic Name Dose Route Start Last Admin Trade Name Freq PRN Reason Stop Dose Admin Sodium Chloride 10 ml 08/26/20 10:45 08/26/20 10:58 Saline Flush FLUSH 10 ml ASDIRECTED PRN Administration Keep Vein Open Discontinued Medications Generic Name Dose Route Start Last Admin Trade Name Freq PRN Reason Stop Dose Admin Hydromorphone HCl 0.5 mg 08/26/20 12:07 08/26/20 12:13 Dilaudid IVPUSH 08/26/20 12:08 0.5 mg ONETIME ONE Administration Sodium Chloride 1,000 mls @ 999 mls/hr 08/26/20 10:45 08/26/20 10:56 Normal Saline IV 08/26/20 11:45 999 mls/hr ONETIME ONE Administration Ceftriaxone Sodium 1 gm/ 100 mls @ 200 mls/hr 08/26/20 11:56 08/26/20 12:04 Sodium Chloride IV 08/26/20 12:25 200 mls/hr ONETIME ONE Administration Ketorolac Tromethamine 30 mg 08/26/20 10:45 08/26/20 10:57 Toradol IVPUSH 08/26/20 10:46 30 mg ONETIME ONE Administration Ondansetron HCl 4 mg 08/26/20 10:45 08/26/20 10:53 Zofran IVPUSH 08/26/20 10:46 4 mg ONETIME ONE Administration - Re-Assessments/Exams Free Text/Narrative Re-Assessment/Exam: 08/26/20 11:05 Urine test was negative so she was sent over to the CT 08/26/20 11:42 CT of the abdomen and pelvis radiologist impression: 1. No renal stone, ureteral dilation or ureteral calculus is seen. 2. Small air cyst within the left lower lung. 3. Nothing acute is otherwise appreciated on noncontrast CT study of the abdomen and pelvis. 08/26/20 12:02 Labs reveal WBC 12.57, neutrophil percentage 67.2, lymphocyte percentage 24.7 with a normal smear, sodium 141, potassium 3.8, carbon dioxide 26, anion gap 13.8, BUN 14, creatinine 0.8, C-reactive protein less than 0.2, Preliminary urinalysis reveals urine appearance cloudy, 1+ protein, 2+ occult blood, nitrite negative, leukocyte Estrace 2+, the remainder of the panel is pending. I have ordered for this patient to receive 1 g of Rocephin IV as she does have a UTI. 08/26/20 12:20 Urine RBC 20-30, urine WBCs greater than 100 Patient is also still complaining of significant discomfort to her right flank and bladder I have ordered for the patient to receive 1/2 mg of Dilaudid IV x1 dose now. 08/26/20 12:57 Patient's IV Rocephin has infused. Patient reports that she does feel much better and I will discharge her to home with a prescription for Keflex. Departure - Departure Time of Disposition: 12:57 Disposition: Home, Self-Care 01 Condition: Fair Clinical Impression: UTI, Urinary tract infectious disease UTI (urinary tract infection) Qualifiers: Urinary tract infection type: acute cystitis Hematuria presence: with hematuria Qualified Code(s): N30.01 - Acute cystitis with hematuria - Discharge Information Prescriptions: cephALEXin [Keflex] 500 mg PO BID #14 cap Instructions: Urinary Tract Infection, Adult, [id number] Referrals: Amaris Cole PA-C [Primary Care Provider] - Forms: ED Department Discharge Additional Instructions: You were seen in the emergency department today with complaints of right flank/abdominal pain radiating down into your groin and bladder discomfort. CT scan did not show any stones at this time. However your urine did show that you have a bladder infection. You were given 1 L of IV fluids, nausea medication and pain medication to relieve the discomfort. You were also given a dose of IV antibiotics for this infection. I have sent a prescription for Keflex 500 mg to be taken twice daily for the next 7 days. Be sure to complete this course of antibiotics. You should notice that you start to feel better within the next 48 to 72 hours. If you should develop a fever, nausea, and vomiting or your condition worsens please return to the emergency department. You can use Tylenol 650 mg every 4 hours as needed for the discomfort or ibuprofen 600 mg every 6 hours as needed for the discomfort. Be sure to not take more than 4000 mg of Tylenol or 3200 mg of ibuprofen in a 24-hour. You can also try heat for comfort as well. Sepsis Event Note (ED) - Evaluation Sepsis Screening Result: No Definite Risk - Focused Exam Vital Signs: Vital Signs Temp Pulse Resp BP Pulse Ox 08/26/20 10:17 98.6 F 73 16 108/68 100 - My Orders Last 24 Hours: My Active Orders 08/26/20 10:10 CULTURE URINE [RM] Stat 08/26/20 10:45 Sodium Chloride 0.9% [Saline Flush] 10 ml FLUSH ASDIRECTED PRN Saline Lock Insert [OM.PC] Stat - Assessment/Plan Last 24 Hours: My Active Orders 08/26/20 10:10 CULTURE URINE [RM] Stat 08/26/20 10:45 Sodium Chloride 0.9% [Saline Flush] 10 ml FLUSH ASDIRECTED PRN Saline Lock Insert [OM.PC] Stat
--- NOTE | 2020-08-26 11:33 | CT ---
CT abdomen and pelvis Technique: Multiple axial sections were obtained from above the dome of the diaphragm inferiorly through the pubic symphysis. Intravenous and oral contrast were not utilized. Study has been performed as a ureteral stone protocol. Findings: Right and left ureters show no dilatation. No ureteral calcifications are seen. Kidneys show no abnormal calcifications. Small air cyst is noted within the left lower lung parenchyma which measures approximately 8 mm. No additional abnormality is seen within the lung bases. Noncontrast appearance of the liver shows no discrete abnormality. Spleen appears within normal limits. Adrenal glands show no nodule. No discrete abnormality is appreciated within the pancreas. Gallbladder contains no calcified gallstones. Aorta shows no aneurysm. No retroperitoneal adenopathy or mesenteric abnormalities are appreciated. No pelvic mass or adenopathy is appreciated. Appendix is not definitely visualized. No bowel dilatation is seen. Bone window settings were reviewed which show no acute osseous finding. Impression: 1. No renal stone, ureteral dilatation or ureteral calculus is seen. 2. Small air cyst within the left lower lung. 3. Nothing acute is otherwise appreciated on noncontrast CT study of the abdomen and pelvis. Diagnostic code #2
[2020-08-26] MEDS ORDERED: cefTRIAXone 1 GM in Sodium Chloride 0.9% 100 ML IV ONE (11:56)
[2020-08-26] MEDS ORDERED: HYDROmorphone 0.5 MG/0.5 ML Syringe IVPUSH ONE (12:07)
== END 2020-08-26 13:06 | disposition home or self-care (01) ==
LOC: JD.ED 10:05
DX: N30.01 Acute cystitis with hematuria (principal); Z88.5 Allergy status to narcotic agent; Z72.0 Tobacco use
CPT/HCPCS: 36415; 74176; 74176-26; 80053; 81001; 81025; 85025; 86140; 87086; 96365; 96375; 99284; 99284-25; J0696; J1170; J1885; J2405; J7030

== ENCOUNTER 2020-10-02 13:46 | Emergency (ER) | payer MEDICAID, OTHER, SELFPAY ==
--- NOTE | 2020-10-02 14:23 | EDM.PDOC ---
ED HPI GENERAL MEDICAL PROBLEM - General Chief Complaint: Upper Extremity Injury/Pain Stated Complaint: FELL, POST SURGERY ELBOW/WRIST AND HAND INJURY Time Seen by Provider: 10/02/20 13:56 Source of Information: Reports: Patient, RN Notes Reviewed History Limitations: Reports: No Limitations, Uncooperative - History of Present Illness INITIAL COMMENTS - FREE TEXT/NARRATIVE: Patient is a 25-year-old female who presents to the ED for the evaluation of a left arm injury. 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 When she got home she fell on her concrete stairs at around 1:30 PM. She states she is having pretty extreme pain in her left elbow, and she is not sure if she is having any pain in her left wrist as it still numb and she cannot feel anything. She still has full range of motion of her fingers however. There is no bleeding or drainage coming from the bandages that are present. There is a small abrasion to the patient's left elbow however no open lacerations. She was given hydrocodone 5 mg tablets, she took 1 of these for pain management prior to coming to the ER, but states this did not help much. She had no fevers or chills, cough that shortness of breath, nausea/vomiting/diarrhea. Left Elbow Pain Score (Numeric/FACES): 7 - Related Data Allergies Allergy/AdvReac Type Severity Reaction Status Date / Time tramadol Allergy Severe Hives Verified 08/26/20 10:13 Home Meds: Home Meds lamoTRIgine [Lamotrigine] 150 mg PO DAILY 05/09/20 [History] ClonazePAM [KlonoPIN] 0.5 mg PO BID PRN 05/10/20 [History] Prazosin HCl [Prazosin] 2 mg PO BEDTIME 08/26/20 [History] hydrOXYzine HCL [Atarax] 25 mg PO BEDTIME 08/26/20 [History] Hydrocodone/Acetaminophen [Hydrocodone-Acetamin 5-325 mg] 1 tab PO Q6H PRN 10/02/20 [History] Past Medical History HEENT History: Reports: Other (See Below) Other HEENT History: left ear drum reconstruction Genitourinary History: Reports: Renal Calculus 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, 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 , Other (See Below) Other CORPORATE INVESTIGATOR History: ovarian cyst right side-partial ovary removed Musculoskeletal History: Reports: Other (See Below) Other Musculoskeletal History: L ganglion cyst Neurological History: Reports: Other (See Below) (ganglion cyst left wrist) Psychiatric History: Reports: PTSD - Past Surgical History HEENT Surgical History: Reports: Other (See Below), Tonsillectomy Other HEENT Surgeries/Procedures: Ear Surgery in 2018 Female Surgical History: Reports: Section, Lithotripsy/ESWL, Oophorectomy Musculoskeletal Surgical History: Reports: Ganglion Cyst (L wrist, removal 10/02/2020) Social & Family History - Family History Family Medical History: No Pertinent Family History - Tobacco Use Tobacco Use Status *Q: Current Every Day Tobacco User Years of Tobacco use: 13 Packs/Tins Daily: 0.5 - Caffeine Use Caffeine Use: Reports: Energy Drinks - Recreational Drug Use Recreational Drug Use: No - Living Situation & Occupation Living situation: Reports: , with Family, Other, Single Occupation: Employed Review of Systems - Review of Systems Review Of Systems: Comprehensive ROS is negative, except as noted in HPI. ED EXAM, GENERAL - Physical Exam Exam: See Below Exam Limited By: No Limitations General Appearance: Alert, WD/WN, No Apparent Distress Respiratory/Chest: No Respiratory Distress, Lungs Clear, Normal Breath Sounds, No Accessory Muscle Use, Chest Non-Tender Cardiovascular: Normal Peripheral Pulses, Regular Rate, Rhythm, No Edema Peripheral Pulses: 2+: Radial (L), Radial (R) Extremities: Normal Range of Motion, Normal Capillary Refill, Limited Range of Motion (of left arm d/t pain. pt able to move fingers without difficulty, states from the mid forearm and down is still numb. Having exquisite pain to left elbow with flex/ext/ int/ext rotation. When she abducts her shoulder, she states that this pulls/causes pain in her elbow.) Neurological: Alert, Oriented, Normal Cognition, Sensory/Motor Deficit (sensation numbness from mid left foream into fingers d/t recent nerve/regional block) Psychiatric: Normal Affect, Normal Mood Skin Exam: Warm, Dry, Intact, Normal Color, No Rash Course - Vital Signs Last Recorded V/S: Last Vital Signs Temp 99.0 F 10/02/20 14:05 Pulse 73 10/02/20 14:05 Resp 20 10/02/20 14:05 BP 108/76 10/02/20 14:05 Pulse Ox 97 10/02/20 14:05 - Orders/Labs/Meds Orders: Active Orders 24 hr Category Date Time Status Wrist Comp Min 3V Lt [CR] Stat Exams 10/02/20 14:16 Ordered - Re-Assessments/Exams Free Text/Narrative Re-Assessment/Exam: 10/02/20 14:24 Patient presents to the ED for the evaluation of her left arm injury, for today's purposes we will go ahead and get an elbow x-ray along with a wrist x- ray, I would leave the bandage in place however as there is no obvious drainage coming from the area, and I would not like to disturb the bandage that was placed by her surgeon. 10/02/20 15:00 X-rays were performed, and demonstrate no acute fractures or other bony abnormalities, this was reviewed by myself and Dr. oJhn. Official radiology read is still pending however. Patient has pain medications at home, I did recommend that she take an anti-inflammatory with this as well and try some ice on the elbow, patient verbalized understanding. Departure - Departure Time of Disposition: 15:00 Disposition: Home, Self-Care 01 Condition: Good Clinical Impression: Left arm pain - Discharge Information *PRESCRIPTION DRUG MONITORING PROGRAM REVIEWED*: No *COPY OF PRESCRIPTION DRUG MONITORING REPORT IN PATIENT MIKE: No Instructions: Joint Pain, [id number] Referrals: Amaris Cole PA-C [Primary Care Provider] - Forms: ED Department Discharge Additional Instructions: You have been evaluated in the ED for your left arm pain. Your x-ray demonstrated no acute fracture of your left wrist/elbow joint. Please use ice as tolerated to the affected area. Please try to elevate the affected area to relieve swelling. You may take Tylenol 500 mg or ibuprofen 600mg q6 hrs for pain relief. Please do so until you have a tolerable level of pain with activity. Do not exceed 4000mg Tylenol or 3200mg ibuprofen in a 24 hour time period. You may take your other pain medications as previously prescribed for ongoing pain management as well. Follow-up with your surgeon at your next appointment, for reevaluation and management. Please return to ED if your symptoms should change or worsen. Sepsis Event Note (ED) - Evaluation Sepsis Screening Result: No Definite Risk - Focused Exam Vital Signs: Vital Signs Temp Pulse Resp BP Pulse Ox 10/02/20 14:05 99.0 F 73 20 108/76 97 - My Orders Last 24 Hours: My Active Orders 10/02/20 14:16 Wrist Comp Min 3V Lt [CR] Stat - Assessment/Plan Last 24 Hours: My Active Orders 10/02/20 14:16 Wrist Comp Min 3V Lt [CR] Stat
--- NOTE | 2020-10-02 14:59 | CR ---
Left Elbow: 4 views left elbow were obtained. Comparison: No prior elbow study is available. Joint spaces are preserved. No joint effusion is seen. No discrete fracture, dislocation or other bony abnormality is seen. Impression: 1. No acute osseous abnormality is seen on left elbow study. Diagnostic code #1
--- NOTE | 2020-10-02 15:01 | CR ---
Left wrist: 4 views of the left wrist are obtained. Comparison: Prior left wrist MRI of 04/08/20. Splint or cast is in place. No acute fracture, dislocation or other bony abnormalities appreciated. Impression: 1. Nothing acute is seen on left wrist exam. 2. Study is slightly limited due to overlying cast or splint. Diagnostic code #1
== END 2020-10-02 15:37 | disposition home or self-care (01) ==
LOC: JD.ED 13:46
DX: M79.602 Pain in left arm (principal); Z72.0 Tobacco use; Z88.5 Allergy status to narcotic agent
CPT/HCPCS: 73080-26-LT; 73080-LT; 73110-26-LT; 73110-LT; 99282; 99283

== ENCOUNTER 2020-10-15 21:28 | Emergency (ER) | payer MEDICAID, SELFPAY ==
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
== END 2020-10-15 22:39 | disposition home or self-care (01) ==
LOC: JD.ED 21:28
DX: S69.92XA Unspecified injury of left wrist, hand and finger(s), initial encounter (principal); Z88.5 Allergy status to narcotic agent; W22.8XXA Striking against or struck by other objects, initial encounter
CPT/HCPCS: 99282; 99283

== ENCOUNTER 2021-01-14 00:26 | Emergency (ER) | payer MEDICAID ==
[2021-01-14] MEDS ORDERED: Loperamide 2 MG Cap ONE (01:39)
[2021-01-14] MEDS ORDERED: Acetaminophen/HYDROcodone 325-5 MG Tab ONE (01:39)
--- NOTE | 2021-01-14 07:47 | EDM.PDOC ---
ED HPI GENERAL MEDICAL PROBLEM - General Chief Complaint: Abdominal Pain Stated Complaint: CIST ON OVERIES Time Seen by Provider: 01/14/21 00:55 Source of Information: Reports: Patient History Limitations: Reports: No Limitations - History of Present Illness INITIAL COMMENTS - FREE TEXT/NARRATIVE: Mrs. Herring is a very pleasant 25-year-old woman who now presents to the ED stating that she has had left lower quadrant/pelvic pain, watery diarrhea, and nausea without vomiting for approximately 1 week. She states that the pain sometimes shoots into her left back and lower left ribs, and feels like a "hard cramp". She states that it comes and goes, typically lasting about 2 hours, then recurring about every couple of hours. It is made worse with going to the bathroom, eating, or drinking. The patient states that she was seen in the clinic this past 01/12/2021, and that a work-up included blood work and a CT of her abdomen and pelvis. She was diagnosed with a left ovarian cyst, and instructed to drink plenty of fluids and take 2 tablets of ibuprofen every 4 hours, plus Tylenol on an as-needed basis. The patient states that her pain has persisted despite doing that. She states that she has a history of ovarian cyst, and that her pain usually lasts for about 1 day, but due to its persistence, she came to the ED seeking help. Here in the ED, the patient is found to be hemodynamically stable, afebrile, saturating 100% on room air. She appears to be relatively comfortable, in no acute distress. Prior to about a week ago, the patient denies having a recent fever, chills, sore throat, ear pain, nasal or sinus congestion, cough, dyspnea, chest pain, palpitations, nausea, vomiting, constipation, diarrhea, abdominal pain, urinary symptoms, recent weight gain or weight loss, recent bloody bowel movements or black bowel movements, recent joint aches, headaches, or rashes. The patient's PCP is Rolly Terrell NP. 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 Left Abdominal Pain Score (Numeric/FACES): 10 - Related Data Allergies Allergy/AdvReac Type Severity Reaction Status Date / Time tramadol Allergy Intermediate Hives Verified 01/14/21 00:59 Home Meds: Home Meds lamoTRIgine [Lamotrigine] 150 mg PO DAILY 05/09/20 [History] ClonazePAM [KlonoPIN] 0.5 mg PO BID PRN 05/10/20 [History] Prazosin HCl [Prazosin] 2 mg PO BEDTIME 08/26/20 [History] hydrOXYzine HCL [Atarax] 25 mg PO BEDTIME 08/26/20 [History] Hydrocodone/Acetaminophen [Hydrocodone-Acetamin 5-325 mg] 1 tab PO Q6H PRN 10/02/20 [History] Past Medical History Genitourinary History: Reports: Renal Calculus 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 , Other (See Below) (Ovarian cysts) Psychiatric History: Reports: Anxiety, Depression, Mood Swings, Other (See Below) (Fibromyalgia) - Past Surgical History HEENT Surgical History: Reports: Oral Surgery (dental extractions), Tonsillectomy, Other (See Below) (Left TM reconstruction Jul 2019) Female Surgical History: Reports: Section (x 1), Kidney stone extraction (x 3), Other (See Below) (Right ovarian cystectomy) Musculoskeletal Surgical History: Reports: Ganglion Cyst Social & Family History - Tobacco Use Tobacco Use Status *Q: Current Every Day Tobacco User Tobacco Use Within Last Twelve Months: Vaping (Nicotine) Years of Tobacco use: 13 Packs/Tins Daily: 0.2 Packs/Tins Daily Comment: Down from 2 ppd Tobacco Use Comment: Started smoking 2006 - Caffeine Use Caffeine Use: Reports: Energy Drinks - Alcohol Use Alcohol Use History: Yes Alcohol Use Frequency: Socially - Recreational Drug Use Recreational Drug Use: Yes Drug Use in Last 12 Months: No Recreational Drug Type: Reports: Marijuana/Hashish (last smoked 2016) - Living Situation & Occupation Living situation: Reports: (), with Family (Son), Other (2 roomates) 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 ED EXAM, RENAL/ - Physical Exam Exam: See Below Exam Limited By: No Limitations General Appearance: Alert, WD/WN, No Apparent Distress Eye Exam: Bilateral Eye: EOMI, Normal Inspection Ears: Normal External Exam, Hearing Grossly Normal Nose: Normal Inspection Throat/Mouth: Normal Inspection, Normal Lips, Normal Voice, No Airway Compromise Head: Atraumatic, Normocephalic Neck: Normal Inspection, Full Range of Motion Respiratory/Chest: No Respiratory Distress, Lungs Clear, Normal Breath Sounds, No Accessory Muscle Use Cardiovascular: Normal Peripheral Pulses, Regular Rate, Rhythm, No Edema, No Gallop, No JVD, No Murmur, No Rub GI/Abdominal: Normal Bowel Sounds, Soft, No Organomegaly, No Distention, No Abnormal Bruit, No Mass, Tender (LLQ only; nontender elsewhere) Back Exam: Normal Inspection, Full Range of Motion. No: CVA Tenderness (L), CVA Tenderness (R) Extremities: Normal Inspection, Normal Range of Motion, No Pedal Edema, Normal Capillary Refill Neurological: Alert, Oriented, Normal Cognition, No Motor/Sensory Deficits Psychiatric: Normal Affect Skin Exam: Warm, Dry, Intact, Normal Color, No Rash Course - Vital Signs Last Recorded V/S: Last Vital Signs Temp 36.8 C 01/14/21 00:57 Pulse 82 01/14/21 00:57 Resp 18 01/14/21 00:57 BP 112/81 01/14/21 00:57 Pulse Ox 100 01/14/21 00:57 - Re-Assessments/Exams Free Text/Narrative Re-Assessment/Exam: 01/14/21 07:54 We had computer downtime from 01:00 to 06:00. As above, the patient has been experiencing left lower quadrant/pelvic pain with watery diarrhea and nausea for the past week. She was evaluated in the clinic on Tuesday, and found to have a left ovarian cyst. She states that the ibuprofen and Tylenol that she has been taking is inadequate. Because her symptoms had not changed over the past week, I did not see an indication to repeat a work-up. The patient was given 2 tablets of [place] and 2 tablets of loperamide, and was then discharged home with a hand-written prescription for [place] #10. She can take [id number] loperamide. I referred her to Dr. Wick, to establish a Radio Aerial Installer. The patient requested a note to be off work today - it was hand written. Departure - Departure Time of Disposition: 01:50 Disposition: Home, Self-Care 01 Condition: Good Clinical Impression: Left ovarian cyst - Discharge Information *PRESCRIPTION DRUG MONITORING PROGRAM REVIEWED*: Not Applicable *COPY OF PRESCRIPTION DRUG MONITORING REPORT IN PATIENT MIKE: Not Applicable Referrals: Rolly Terrell NP [Primary Care Provider] - Jarod Wick MD [Physician] - Forms: ED Department Discharge Additional Instructions: You were seen in the emergency room for continued left lower abdominal pain and diarrhea after being diagnosed with a left ovarian cyst on Tuesday. Based on your history and physical examination, no further work-up was recommended. You were treated with 2 tablets of the narcotic pain reliever [place] and 2 tablets (4 mg) of the antidiarrheal medicine loperamide (Imodium AD) in the ER. We recommend that you take 2 to 3 tablets (400-600 mg) of [id number] ibuprofen up to every 8 hours, with food, as needed for discomfort. You may take 1 to 2 tablets of [place] up to every 6 hours, as needed for pain not relieved by ibuprofen. If you take [place], do not drive or operate heavy machinery for 12 hours after taking. You may take 1 tablet of [id number] loperamide after each loose bowel movement, to a maximum of 8 tablets (16 mg) within a 24-hour period, however, go easy on this medicine, as it can cause significant constipation. Make sure that you stay adequately hydrated. Follow-up with Dr. Jarod Wick to establish a Radio Aerial Installer. If any other problems, please do not hesitate to return to the ER. Sepsis Event Note (ED) - Evaluation Sepsis Screening Result: No Definite Risk - Focused Exam Vital Signs: Vital Signs Temp Pulse Resp BP Pulse Ox 01/14/21 00:57 36.8 C 82 18 112/81 100
== END 2021-01-14 01:55 | disposition home or self-care (01) ==
LOC: JD.ED 00:26
DX: N83.202 Unspecified ovarian cyst, left side (principal); Z72.0 Tobacco use; Z88.5 Allergy status to narcotic agent
CPT/HCPCS: 99283; A9270